=== PATIENT | male | born 1975 | race Caucasian/White ===

== ENCOUNTER → 2017-04-22 | Outpatient (CLI) | payer MEDICAID, SELFPAY | PROVIDERS: Visit Provider Family Medicine | DX: R06.09 Other forms of dyspnea (principal) | CPT/HCPCS: 36415; 71260; 82565; 84520; Q9967 ==

== ENCOUNTER 2017-06-06 16:07 | Emergency (ER) | payer MEDICAID, SELFPAY ==
[2017-06-06 16:48] VITALS: BP 157/104; PULSE 90; RESP 18; TEMP 36.5; O2SAT 97; BMI 30.6
[2017-06-06 17:27] VITALS: BP 120/85; PULSE 110; RESP 18; TEMP 36.8; O2SAT 98
--- NOTE | 2017-06-06 17:30 | PC.NURSE ---
PATIENT AND MD ARGUING AT BEDSIDE REGARDING CARE.
[2017-06-06 17:40] LABS: Basophils % 0.4 % (0.1-2.0); Eosinophils # 0.3 K/mm3 (0.0-0.4); Eosinophils % 3.6 % (0.1-12.0); Hematocrit 37.3 % (42.0-52.0); Hemoglobin 12.7 g/dL (14.1-18.0); Lymphocytes # 1.7 K/mm3 (0.7-4.5); Lymphocytes % 24.3 K/mm3 (10-50); Mean Corpuscular HGB Conc 34.1 g/dL (31.8-35.4); Mean Platelet Volume 8.4 fl (7.4-10.4); Monocytes # 0.3 K/mm3 (0.1-1.0); Monocytes % 4.3 % (1.7-9.3); Neutrophils # 4.7 K/mm3 (1.8-7.8); Neutrophils % 67.3 % (37.0-80.0); Platelet Count 167 K/mm3 (142-424); Red Blood Count 4.39 M/mm3 (4.60-6.20); Red Cell Distribution Width 12.4 % (11.5-17.5); White Blood Count 6.9 K/mm3 (4.8-10.8)
[2017-06-06 17:56] LABS: Alanine Aminotransferase 92 U/L (12-78); Albumin Level 4.3 gm/dL (3.4-5.0); Alkaline Phosphatase 120 U/L (46-116); Anion Gap 14.9 mEq/L (5-15); Bilirubin,Total 0.4 mg/dL (0.2-1.0); Blood Urea Nitrogen 37 mg/dL (7-18); Calcium 9.3 mg/dL (8.5-10.1); Carbon Dioxide 27 mmol/L (21.0-32.0); Chloride 101 mmol/L (98-107); Creatinine Clearance Estimated 107 mL/min (0-300); Creatinine,Serum 1.44 mg/dL (0.70-1.30); Estimated Glomerular Filt Rate 54 ml/min (>60); GFR (African American) 66 ML/MIN (>60); Globulin 4.5 gm/dl (1.3-3.2); Glucose 235 mg/dL (74-106); Sodium 138 mmol/L (136-145); Total Protein,Serum 8.8 gm/dL (6.4-8.2)
[2017-06-06 17:58] LABS: Aspartate Amino Transferase 44 U/L (15-37); Potassium 4.9 mmoL/L (3.5-5.1)
[2017-06-06 17:59] LABS: Hemoglobin A1C 11.2 % (0.0-7.0)
== END 2017-06-06 17:26 | disposition left against medical advice (07) ==
PROVIDERS: Emergency Medicine; Emergency Provider Emergency Medicine; Family Provider Family Medicine
DX: Z53.29 Procedure and treatment not carried out because of patient's decision for other reasons (principal)
CPT/HCPCS: 80053; 83036; 85025; 99211; 99282

== ENCOUNTER → 2017-06-30 11:57 | Outpatient (CLI) | payer MEDICAID, SELFPAY ==
--- NOTE | 2017-06-30 12:13 | CT_ITS ---
CT head/brain wo/w con HISTORY: Severe headache ITS.REASON: SEVERE HEADACHE ORDERING PHYSICIAN: Isaac Ruby MD PATIENT AGE: 42 years COMPARISON: None TECHNIQUE: Axial images obtained without and with contrast. 100 mg of Isovue-300 injected IV.. Brain and bone windows reviewed. FINDINGS: No midline shift, mass effect, intracranial hemorrhage, hydrocephalus, or extra-axial fluid collection is evident. No enhancing lesions are evident. Is moderate opacification of the ethmoid sinuses bilaterally. No calvarial abnormality or mastoid effusion. IMPRESSION: 1. Negative CT head without and with contrast. No acute intracranial findings. 2. Bilateral ethmoid sinus disease
[2017-06-30 12:29] LABS: Blood Urea Nitrogen 43 mg/dL (7-18); Creatinine,Serum 1.58 mg/dL (0.70-1.30); Estimated Glomerular Filt Rate 49 ml/min (>60); GFR (African American) 59 ML/MIN (>60)
--- NOTE | 2017-06-30 12:52 | HMH.ITSHM ---
LANTUS,NOVOLOG OSARTIN POSTASSIUM,FUROSEMIDE,BISPROLOL FURMAERATE
== END ==
PROVIDERS: Visit Provider Family Medicine
DX: R51 Headache (principal)
CPT/HCPCS: 36415; 70470; 82565; 84520; Q9967

== ENCOUNTER 2017-07-04 13:04 | Emergency (ER) | payer MEDICAID, SELFPAY ==
[2017-07-04 14:05] VITALS: BP 116/77; PULSE 75; RESP 18; TEMP 36.6; O2SAT 97; BMI 39.1
--- NOTE | 2017-07-04 14:13 | HMH.EDUTC ---
[facility] Disposition Clinical Impression: Sinus headache Disposition: Home, Self-Care Condition on Discharge: Good Instructions: DI for Chronic Pain -- Adult Additional Instructions: * Monitor Temp. Tylenol and/or Ibuprofen as needed. ER if fever is no less than 101 despite alternating Tylenol and Ibuprofen * Encourage fluids, water, Gatorade, powerade, pedialyte if /toddler/or child * Warm salt water gargles for throat irritation *Warm fluids *Sore throat lozenges *Sleep elevated *humidifier or vaporizer Lots of rest Increase fluids, water, Gatorade, powerade *Flonase 2 sprays each nostril daily but may take 2-3 days to notice improvement with it *Bromfed may cause drowsiness. Know how it effect you or your child. Before driving, caring for small children or sending your child to school *Your throat swab was sent to lab for culture. Those results area typically sent to your primary care physician. Be sure to follow up in 2-3 days if no improvement so they can review those results and treat if necessary If you dont have primary care I recommend you get one, but in the mean time you will have to return to a walk in clinic Follow up IMMEDIATELY for new or worsening of symptoms OR no noticeable improvement over the next 48-72 hours. 911 immediately for any life threatening symptoms such as chest pain or difficulty breathing Prescriptions: Dextromethorphan Polistirex [Delsym] 10 ml PO Q12H PRN #300 [email or web address] PRN Reason: Cough Fluticasone Propionate [Flonase 50mcg nasal spray 16gm] 2 spr NS DAILY #1 bottle Referrals: Colin Orellana MD [Primary Care Provider] - Forms: Work/School Release Time of Disposition: 15:04 Medical Decision Making - Medical Records Medical records reviewed: Yes: I reviewed the patient's medical records. Vital Signs: 07/04/17 14:05 Temperature 97.8 F Temperature Source Temporal Artery Scan Pulse Rate [Right Brachial] 75 Respiratory Rate 18 Blood Pressure [Right Arm] 116/77 Blood Pressure Mean [Right Arm] 90 Blood Pressure Source [Right Arm] Automatic Cuff Blood Pressure Position [Right Arm] Sitting 02 Sat by Pulse Oximetry 97 Oxygen Delivery Method Room Air - Gage Inquiry Pt receiving controlled substance: No Gage was queried for this patient: No - Reevaluation(s) Time: 15:00 Reevaluation #1: Patient still having headache, patient given headache treatment Tordol, benadryl, and reglan will recheck in 15 min to see if pain improved [facility] HPI - General Stated complaint: h/a Mode of Arrival: Family Vehicle Source of Information: Patient Limitations: No Limitations Description of Symptoms (Recalled from Triage Doc. by RN): C/O SORE THROAT AND HEADACHE X 1 WEEK HEENT Symptoms (Recalled from RN notes): Yes (SORE THROAT AND HEADACHE) Resp Symptoms (Recalled from RN notes): No Skin Symptoms (Recalled from RN notes): No MS Symptoms (Recalled from RN notes): No Functional Status (Recalled from RN notes): N/A - History of Present Illness Provider Complaint: Patient state thats that he was seen and started taking Augmentin about 3 days ago for sinus infection States that he has been taking the medication as prescribed and still having headache and pressure like feeling State that now his throat is feeling sore and he is having body aches so he was afraid he may have the flu so he wanted to come in for headache and flu like symptoms - Related Data Home Medications Medication Instructions Recorded Confirmed Amoxicillin/Potassium Clav 1 tab PO Q12H 07/04/17 07/04/17 [Augmentin 875-125 Tablet] Bisoprolol Fumarate 10 mg PO DAILY 07/04/17 07/04/17 Furosemide [Lasix 80mg tab] 80 mg PO BID 07/04/17 07/04/17 Insulin Glargine,Hum.rec.anlog 36 unit SQ DAILY 07/04/17 07/04/17 [Basaglar Kwikpen U-100] Insulin Lispro [HumaLOG 100 8 unit SQ TID 07/04/17 07/04/17 units/mL 3mL vial (SSI)] Losartan Potassium [Cozaar] 100 mg PO DAILY 07/04/17 07/04/17 Previous Rx's Medicat
[2017-07-04 15:20] VITALS: BP 120/78; PULSE 75; RESP 18; TEMP 36.4; O2SAT 98
[2017-07-04 15:30] LABS: UTC Influenza A Antigen Negative (Negative); UTC Influenza B Antigen Negative (Negative); UTC Strep Screen (Rapid) Negative (Negative)
== END 2017-07-04 15:22 | disposition home or self-care (01) ==
PROVIDERS: Emergency Provider Nurse Practitioner; Family Provider Family Medicine; PCP Family Medicine
DX: R51 Headache (principal); E10.9 Type 1 diabetes mellitus without complications; Z79.4 Long term (current) use of insulin
CPT/HCPCS: 87804; 87880; 96372; 99203

== ENCOUNTER 2017-08-05 17:22 | Observation (INO) ==
[2017-08-05 17:59] LABS: Basophils % 0.2 % (0.1-2.0); Eosinophils # 0.2 K/mm3 (0.0-0.4); Eosinophils % 1.1 % (0.1-12.0); Hematocrit 41.9 % (42.0-52.0); Lymphocytes # 1.5 K/mm3 (0.7-4.5); Lymphocytes % 10.4 K/mm3 (10-50); Mean Corpuscular HGB Conc 33.5 g/dL (31.8-35.4); Mean Corpuscular Hemoglobin 28.5 pg (27.0-31.2); Mean Corpuscular Volume 85.2 fl (80-94); Mean Platelet Volume 8.1 fl (7.4-10.4); Monocytes # 0.3 K/mm3 (0.1-1.0); Monocytes % 2.2 % (1.7-9.3); Neutrophils % 86.1 % (37.0-80.0); Platelet Count 243 K/mm3 (142-424); Red Blood Count 4.91 M/mm3 (4.60-6.20); Red Cell Distribution Width 12.5 % (11.5-17.5)
[2017-08-05 18:09] LABS: Albumin/Globulin Ratio 0.9 (1.1-1.8); Anion Gap 10.7 mEq/L (5-15); Bilirubin,Total 0.6 mg/dL (0.2-1.0); Calcium 10.1 mg/dL (8.5-10.1); Globulin 4.6 gm/dl (1.3-3.2); Potassium 4.7 mmoL/L (3.5-5.1); Total Protein,Serum 8.6 gm/dL (6.4-8.2)
[2017-08-05 18:20] LABS: VBG Base Excess 1.3 mmol/L (-2.4-2.3); VBG HCO3 27.3 mmol/L (23-30); VBG Oxygen Saturation 64.3 % (50-70); VBG PCO2 53.2 mmol/L (35-51); VBG PH 7.33 mmol/L (7.31-7.41); VBG PO2 32.5 mmol/L (28-40); VBG Total CO2 28.9 mmol/L (23-27)
--- NOTE | 2017-08-05 18:35 | Emergency Department Note ---
ED Disposition Clinical Impression: Dehydration, Acute renal insufficiency, IDDM (insulin dependent diabetes mellitus), Intractable vomiting Disposition: Still a Patient Condition on Discharge: Fair Instructions: DI for Diarrhea and Traveler's Diarrhea -- Adult, DI for Diarrhea and Traveler's Diarrhea -- Child, DI for Nausea -- Adult, DI for Nausea -- Child Referrals: Colin Orellana MD [Primary Care Provider] - - Critical Care Critical Care Time: No Attestation: On 08/05/17, the high probability of a clinically significant, sudden or life threatening deterioration of the following system(s) required my full and direct attention, intervention and personal management. The time I documented below is in addition to time spent performing reported procedures but includes the following listed in this critical care notation. Medical Decision Making - Gage Inquiry Pt receiving controlled substance: No Gage was queried for this patient: No Vital Signs: 08/05/17 17:34 Temperature 99.0 F Temperature Source Oral Pulse Rate [Right Brachial] 73 Respiratory Rate 18 Blood Pressure [Right Arm] 154/96 Blood Pressure Mean [Right Arm] 115 Blood Pressure Source [Right Arm] Automatic Cuff Blood Pressure Position [Right Arm] Sitting 02 Sat by Pulse Oximetry 98 Oxygen Delivery Method Room Air - Lab Data Lab Results 08/05/17 17:45: WBC 14.0 H, RBC 4.91, Hgb 14.0 L, Hct 41.9 L, MCV 85.2, MCH 28.5 , MCHC 33.5, RDW 12.5, Plt Count 243, MPV 8.1, Neut % (Auto) 86.1 H, Lymph % ( Auto) 10.4, Leon % (Auto) 2.2, Eos % (Auto) 1.1, Baso % (Auto) 0.2, Neut # (Auto ) 12.0 H, Lymph # (Auto) 1.5, Leon # (Auto) 0.3, Eos # (Auto) 0.2, Baso # (Auto ) 0.0 08/05/17 17:45: Sodium 143, Potassium 4.7, Chloride 105, Carbon Dioxide 32, Anion Gap 10.7, BUN 50 H, Creatinine 1.89 H, Estimated Creat Clear 77, Estimated GFR 40 L, Est GFR ( Amer) 48 L, Glucose 203 H, Calcium 10.1, Total Bilirubin 0.6, AST 43 H, ALT 89 H, Alkaline Phosphatase 119 H, Total Protein 8.6 H, Albumin 4.0, Globulin 4.6 H, Albumin/Globulin Ratio 0.9 L 08/05/17 17:45: Acetone Level None detected 08/05/17 18:13: VBG pH 7.33, VBG pCO2 53.2 H, VBG pO2 32.5, VBG HCO3 27.3, VBG Total CO2 28.9 H, VBG O2 Saturation 64.3, VBG Base Excess 1.3 Result diagrams: 08/05/17 17:45 08/05/17 17:45 Orders (Tests/Meds): ED MEDICATIONS Discontinued Medications Generic Name Dose Route Start Last Admin Trade Name Freq PRN Reason Stop Dose Admin Sodium Chloride 1,000 mls @ 999 mls/hr 08/05/17 17:45 08/05/17 17:43 Sod Chlor 0.9% 1000ml Bag IV 08/05/17 18:45 999 mls/hr .Q1H1M SHRADDHA Administration Ondansetron HCl 4 mg 08/05/17 17:41 08/05/17 17:42 Zofran 4mg/2ml Vial IV 08/05/17 17:42 4 mg ONCE ONE Administration ORDERS Category Date Time Status Acute abdomen XR series [XR acute abdomen series] Stat Exams 08/05/17 18:31 Taken Complete Blood Count Auto Diff Stat Lab 08/05/17 17:45 Results Urinalysis and Microscopic Stat Lab 08/05/17 17:39 Ordered Venous Blood Gas Stat RT 08/05/17 17:40 Ordered - Radiology Data #1 Image(s): Chest, Abdomen Image Reviewed: Yes I reviewed the patient's radiology image Preliminary Findings: Normal/NAD No acute findings Medical Decision Narrative: Obtain labs in series discussed with Dr. Orellana who agreed to admit for IV fluid rehydration. Start the patient on Reglan. Nausea/Vomiting/Diarrhea HPI - General Chief complaint: Nausea/Vomiting/Diarrhea Stated complaint: v/d Time Seen by Provider: 08/05/17 18:00 Mode of Arrival: Ambulatory Limitations: No Limitations Description of Symptoms (Recalled from ER Triage Doc. by RN): iddm who presents having had n/v/d for 48 hours; states he cannot keep anything down. further states his bs has been elevated at home, and has been giving his routine insulin ;. pt states he needs a head ct because he has been dizzy for months and needs - History of Present Illness HPI Narrative: 42 years old white male diabetic insulin-dependent with history of DKA . 2 days ago he started having vomiting 10-15 times a day and yesterday he developed diarrhea 5 times a day. He denies fever chills or abdominal pain. He he had urine output 3 times a day. MD complaint: nausea, vomiting, diarrhea Onset (ago): day(s) (2 days.) Description of Vomiting: food contents Description of Diarrhea: water Associated Abdominal Pain: No - Related Data Home Medications Medication Instructions Recorded Confirmed Amoxicillin/Potassium Clav 1 tab PO Q12H 07/04/17 07/04/17 [Augmentin 875-125 Tablet] Bisoprolol Fumarate 10 mg PO DAILY 07/04/17 07/04/17 Furosemide [Lasix 80mg tab] 80 mg PO BID 07/04/17 07/04/17 Insulin Glargine,Hum.rec.anlog 36 unit SQ DAILY 07/04/17 07/04/17 [Basaglar Kwikpen U-100] Insulin Lispro [HumaLOG 100 8 unit SQ TID 07/04/17 07/04/17 units/mL 3mL vial (SSI)] Losartan Potassium [Cozaar] 100 mg PO DAILY 07/04/17 07/04/17 Previous Rx's Medication Instructions Recorded Dextromethorphan Polistirex 10 ml PO Q12H PRN #300 [email or web address] 07/04/17 [Delsym] Fluticasone Propionate [Flonase 2 spr NS DAILY #1 bottle 07/04/17 50mcg nasal spray 16gm] Allergies Allergy/AdvReac Type Severity Reaction Status Date / Time No Known Allergies Allergy Verified 07/04/17 14:11 [facility] History I have reviewed the patient's past medical history: Yes Medical History: Reports:: Diabetes Mellitus Type 1 - Social History Educational Level: Completed High School Alcohol Intake: never - Psychiatric History Expresses thoughts of harming self/others: None Suicide Plan Description: No Plan ROS Obtained: Yes All systems reviewed & no additional complaints Physical Exam - General General appearance: alert, in no apparent distress - Head Head exam: atraumatic, normocephalic, normal inspection - Eye Eye exam: Present: normal appearance, PERRL, EOMI. Absent: nystagmus - ENT ENT exam: Present: mucous membranes dry - Neck Neck exam: Present: normal inspection, full ROM, trachea midline. Absent: meningismus, lymphadenopathy - Chest Chest inspection: Present: normal inspection, symmetric chest wall rise. Absent : tenderness - Respiratory Respiratory exam: Present: normal lung sounds bilaterally. Absent: respiratory distress - Cardiovascular Cardiovascular exam: Present: regular rate, normal rhythm. Absent: JVD - Abdominal Exam Abdominal exam: Present: soft, normal bowel sounds. Absent: distention, tenderness, guarding, rebound, rigidity - Extremities Exam Extremities exam: Present: normal inspection, full ROM, normal capillary refill. Absent: calf tenderness - Back Exam Back exam: Present: normal inspection. Absent: tenderness - Neurological Exam Neurological exam: Present: alert, oriented X3, CN II-XII intact, motor sensory deficit, reflexes normal - Psychiatric Psychiatric exam: Present: normal affect, normal mood - Skin Skin exam: Present: warm, dry, intact, normal color
[2017-08-05 19:07] LABS: Amylase 49 U/L (25-125); Lipase 113 u/L (73-393)
[2017-08-05 19:15] LABS: Eosinophils % 1 % (0-3); Lymphocytes % 13 % (10-50); Monocytes % 4 % (2-9); Neutrophils % 82 % (42-76); RBC Morphology Normal; Total Cells Counted 100
--- NOTE | 2017-08-06 07:28 | History & Physical Report ---
*Admission Date: 08/05/17 *Chief complaint: vomiting *History of present illness: 42-year-old male with uncontrolled diabetes and into the emergency department with 3 days of vomiting as well as diarrhea. Patient reports sudden onset of vomiting 3 days prior to presentation that was unrelenting. He was unable to hold down solids or liquids. He developed diarrhea during this time which was more frequent in the initial of illness but has decreased in severity as he has been unable to maintain any p.o. intake. He denies fevers chills. Patient has had similar episodes in the past. Workup in the emergency department was rather unremarkable but clinically he appeared dehydrated so was admitted for IV fluids. [facility] History I have reviewed the patient's past medical history: Yes Medical History: Reports:: Congestive Heart Failure, Diabetes Mellitus Type 1 ( HX OF NEUROPATHY) - *Social History Educational Level: Attended High School Smoking Status: Never smoker Alcohol Intake: never Occupational Status: disabled Housing: house Household Members: spouse - Psychiatric History Expresses thoughts of harming self/others: None Suicide Plan Description: No Plan *Family Hx:: Cancer, Coronary Artery Disease, Diabetes, Hyperlipidemia, Hypertension, Kidney Disease, Stroke Review of Systems - Review of Systems Review of systems:: pertinent systems reviewed and negative unless documented below Meds Home Medications Medication Instructions Recorded Confirmed Type Bisoprolol Fumarate 10 mg PO DAILY 07/04/17 08/05/17 History Furosemide [Lasix 80mg tab] 80 mg PO BID 07/04/17 08/05/17 History Insulin Glargine,Hum.rec.anlog 38 unit SQ DAILY 07/04/17 08/05/17 History [Basaglar [place] U-100] Insulin Lispro [HumaLOG 100 10 unit SQ TID 07/04/17 08/05/17 History units/mL 3mL vial (SSI)] Losartan Potassium [Cozaar] 100 mg PO DAILY 07/04/17 08/05/17 History Fluticasone Propionate [Flonase 2 spr NS DAILY PRN 08/05/17 08/05/17 History 50mcg nasal spray 16gm] Allergies Allergy/AdvReac Type Severity Reaction Status Date / Time No Known Allergies Allergy Verified 07/04/17 14:11 Exam Vital signs and Labs for Last 24 Hours: Temp Pulse Resp BP Pulse Ox 98.0 F 80 16 146/80 94 L 08/06/17 04:00 08/06/17 04:00 08/06/17 04:00 08/06/17 04:00 08/06/17 04:00 Laboratory Results - last 24 hr 08/06/17 05:51: POC Glucose 121 H I & O for Last 24 hours: Intake & Output 08/03/17 08/04/17 08/05/17 08/06/17 11:59 11:59 11:59 11:59 Intake Total 1470 / 1470 Balance 1470 / 1470 Narrative: Patient is awake and alert this morning and does not appear dehydrated nor does he appear in any distress. Pedal reactive to light. Oropharynx is moist. Neck is without lymphadenopathy. Lungs are clear to auscultation. Heart has a regular rate and rhythm. Abdomen is soft and nontender. Patient has active range of motion in all extremities and no focal neurologic deficits Assessment and Plan (1) Dehydration Current visit: Yes Status: Acute Category: Medical Code(s): E86.0 - Dehydration (2) Gastroenteritis Current visit: Yes Status: Acute Category: Medical Code(s): K52.9 - Noninfective gastroenteritis and colitis, unspecified (3) Diabetic gastroparesis Current visit: Yes Status: Acute Category: Medical Code(s): E11.43 - Type 2 diabetes mellitus with diabetic autonomic (poly)neuropathy; K31.84 - Gastroparesis - Assessment and plan all Dx Assessment and Plan for all problems:: Patient's vomiting is seemingly resolved it is now been 10 hour since his last episode of emesis. Diet has been advanced. I will start Reglan prior to meals and at night and we will start this intravenously. Encourage ambulation. Dehydration is resolved and I will decrease his IV fluids as patient has had a significant problems with pedal edema in the last 2 years. If patient can keep liquids down today he will be discharged home later this evening
[2017-08-06 07:42] LABS: Albumin Level 3.1 gm/dL (3.4-5.0); Albumin/Globulin Ratio 0.8 (1.1-1.8); Anion Gap 10.5 mEq/L (5-15); Bilirubin,Total 0.4 mg/dL (0.2-1.0); Globulin 3.8 gm/dl (1.3-3.2); Potassium 4.5 mmoL/L (3.5-5.1); Total Protein,Serum 6.9 gm/dL (6.4-8.2)
--- NOTE | 2017-08-06 08:02 | Pharmacy Consult Notes ---
[facility] VTE Monitoring - Patient Demographics Admission date: 08/05/17 Report Date: 08/06/17 Time: 08:00 Allergies/Adverse Reactions: Patient Allergies No Known Allergies Allergy (Verified 07/04/17 14:11) Height: 1.78 m Weight: 98.685 kg Patient Problems: Current Active Problems Dehydration (Acute) Acute renal insufficiency (Acute) IDDM (insulin dependent diabetes mellitus) (Acute) Intractable vomiting (Acute) Gastroenteritis (Acute) Diabetic gastroparesis (Acute) - VTE Risk Labs: VTE Related Lab Results Hgb 14.0 g/dL (14.1-18.0) L 08/05/17 17:45 Hct 41.9 % (42.0-52.0) L 08/05/17 17:45 Plt Count 243 K/mm3 (142-424) 08/05/17 17:45 BUN 48 mg/dL (7-18) H 08/06/17 06:27 Creatinine 1.61 mg/dL (0.70-1.30) H 08/06/17 06:27 Estimated Creat Clear 85 mL/min (0-300) 08/06/17 06:27 Was VTE Risk Assessment Performed: Yes VTE Score: 3 VTE Risk Level: Low Risk Clinical Trial Participant: No - Prophylaxis VTE Prophylaxis Ordered?: Yes Types of VTE Prophylaxis: TEDS Knee High
[2017-08-06 08:13] LABS: Hematocrit 34.9 % (42.0-52.0); Mean Corpuscular HGB Conc 34.9 g/dL (31.8-35.4); Mean Corpuscular Volume 83.2 fl (80-94); Red Cell Distribution Width 12.6 % (11.5-17.5); White Blood Count 7.5 K/mm3 (4.8-10.8)
[2017-08-06 08:14] LABS: Basophils % 0.3 % (0.1-2.0); Eosinophils # 0.2 K/mm3 (0.0-0.4); Eosinophils % 2.2 % (0.1-12.0); Lymphocytes # 1.9 K/mm3 (0.7-4.5); Lymphocytes % 24.7 K/mm3 (10-50); Mean Platelet Volume 8.1 fl (7.4-10.4); Monocytes # 0.3 K/mm3 (0.1-1.0); Monocytes % 3.9 % (1.7-9.3); Neutrophils # 5.2 K/mm3 (1.8-7.8); Platelet Count 169 K/mm3 (142-424)
[2017-08-06 08:36] LABS: Hemoglobin 12.3 g/dL (14.1-18.0)
--- NOTE | 2017-08-06 16:35 | Discharge Summary ---
General - General Admission date: 08/05/17 Discharge date: 08/06/17 HPI HPI: 42-year-old male with uncontrolled diabetes and into the emergency department with 3 days of vomiting as well as diarrhea. Patient reports sudden onset of vomiting 3 days prior to presentation that was unrelenting. He was unable to hold down solids or liquids. He developed diarrhea during this time which was more frequent in the initial of illness but has decreased in severity as he has been unable to maintain any p.o. intake. He denies fevers chills. Patient has had similar episodes in the past. Workup in the emergency department was rather unremarkable but clinically he appeared dehydrated so was admitted for IV fluids. Hospital Course Hospital Course: Patient was admitted and given Zofran and Phenergan for nausea. He had one further episode of emesis at 9 PM. Patient remained emesis free afterwards and did not have any further diarrhea. On the following morning (August 06) patient' s fluids were decreased as he appeared adequately hydrated. Was advanced and he was given Reglan prior to meals which he tolerated well. He did not have any further vomiting. He was discharged home. Patient will start oral Reglan and follow-up in my office in 2 weeks Objective Vital signs: Temp Pulse Resp BP Pulse Ox 97.8 F 67 16 184/111 99 08/06/17 16:00 08/06/17 16:00 08/06/17 16:00 08/06/17 16:00 08/06/17 16:00 Results Labs on day of discharge: Labs from last 24 hours 08/06/17 08/06/17 08/06/17 16:12 11:08 08:22 WBC RBC Hgb Hct MCV MCH MCHC RDW Plt Count MPV Neut % (Auto) Lymph % (Auto) Hinds % (Auto) Eos % (Auto) Baso % (Auto) Neut # (Auto) Lymph # (Auto) Hinds # (Auto) Eos # (Auto) Baso # (Auto) Sodium Potassium Chloride Carbon Dioxide Anion Gap BUN Creatinine Estimated Creat Clear Estimated GFR Est GFR ( Amer) Glucose POC Glucose 376 H* 330 H* Calcium Magnesium Total Bilirubin AST ALT Alkaline Phosphatase Total Protein Albumin Globulin Albumin/Globulin Ratio Stl Aeromonas (PCR) Not detected Stl C. cayetanensis PCR Not detected Stool Rotavirus (PCR) Not detected Stl Adenov F 40/41 PCR Not detected Stool Astrovirus (PCR) Not detected Stool Campylobacter PCR Not detected Stl C.difficile Tox PCR Not detected Stool Cryptosporidium PCR Not detected Stl E.coli Shiga Tox PCR Not detected Stool E coli O157 PCR Not detected Stl Enterotoxigenic E PCR Not detected Stool EPEC (PCR) Not detected Stool EAEC (PCR) Not detected Stl E. histolytica PCR Not detected Stool Giardia Lamblia PCR Not detected Stool Salmonella PCR Not detected Stool Sapovirus (PCR) Not detected Stl P. shigelloides PCR Not detected Stl Shigella/EIEC PCR Not detected St Y.enterocolitica PCR Not detected Stool Vibrio (PCR) Not detected Stl Vibrio cholerae PCR Not detected Stl Norovirus GI/GII PCR Not detected 08/06/17 08/06/17 08/06/17 06:27 06:27 05:51 WBC 7.5 D RBC 4.20 L Hgb 12.3 L D Hct 34.9 L MCV 83.2 MCH 29.0 MCHC 34.9 RDW 12.6 Plt Count 169 D MPV 8.1 Neut % (Auto) 69.0 Lymph % (Auto) 24.7 Hinds % (Auto) 3.9 Eos % (Auto) 2.2 Baso % (Auto) 0.3 Neut # (Auto) 5.2 Lymph # (Auto) 1.9 Hinds # (Auto) 0.3 Eos # (Auto) 0.2 Baso # (Auto) 0.0 Sodium 145 Potassium 4.5 Chloride 111 H Carbon Dioxide 28 Anion Gap 10.5 BUN 48 H Creatinine 1.61 H Estimated Creat Clear 85 Estimated GFR 48 L Est GFR ( Amer) 58 L D Glucose 130 H D POC Glucose 121 H Calcium 9.0 D Magnesium 2.2 Total Bilirubin 0.4 AST 28 D ALT 67 Alkaline Phosphatase 90 Total Protein 6.9 Albumin 3.1 L D Globulin 3.8 H Albumin/Globulin Ratio 0.8 L Stl Aeromonas (PCR) Stl C. cayetanensis PCR Stool Rotavirus (PCR) Stl Adenov F 40/41 PCR Stool Astrovirus (PCR) Stool Campylobacter PCR Stl C.difficile Tox PCR Stool Cryptosporidium PCR Stl E.coli Shiga Tox PCR Stool E coli O157 PCR Stl Enterotoxigenic E PCR Stool EPEC (PCR) Stool EAEC (PCR) Stl E. histolytica PCR Stool Giardia Lamblia PCR Stool Salmonella PCR Stool Sapovirus (PCR) Stl P. shigelloides PCR Stl Shigella/EIEC PCR St Y.enterocolitica PCR Stool Vibrio (PCR) Stl Vibrio cholerae PCR Stl Norovirus GI/GII PCR DS: Diagnosis - Discharge Diagnosis (1) Dehydration Status: Acute (2) Gastroenteritis Status: Acute (3) Diabetic gastroparesis Status: Acute Discharge Plan - Patient Discharge Instructions ACTIVITY: Continue current activity DIET: continue same diet Patient Instructions: Low-Sodium Diet - Follow up Plan Follow up with: Colin Orellana MD [Primary Care Provider] - 2 weeks Disposition: Home, Self-Shelter Medications: Home Medications Medication Instructions Recorded Confirmed Type Bisoprolol Fumarate 10 mg PO DAILY 07/04/17 08/05/17 History Furosemide [Lasix 80mg tab] 80 mg PO BID 07/04/17 08/05/17 History Insulin Glargine,Hum.rec.anlog 38 unit SQ DAILY 07/04/17 08/05/17 History [Basaglar Kwikpen U-100] Insulin Lispro [HumaLOG 100 10 unit SQ TID 07/04/17 08/05/17 History units/mL 3mL vial (SSI)] Losartan Potassium [Cozaar] 100 mg PO DAILY 07/04/17 08/05/17 History Fluticasone Propionate [Flonase 2 spr NS DAILY PRN 08/05/17 08/05/17 History 50mcg nasal spray 16gm] Atorvastatin Calcium [Atorvastatin 10 mg PO HS 08/06/17 08/06/17 History 10mg Tab] Prescriptions/Medication Reconciliation: New Metoclopramide HCl [Metoclopramide 10mg Tablet] 10 mg PO ACHS #120 tab Continue Insulin Lispro [HumaLOG 100 units/mL 3mL vial (SSI)] 10 unit SQ TID Bisoprolol Fumarate 10 mg PO DAILY Losartan Potassium [Cozaar] 100 mg PO DAILY Furosemide [Lasix 80mg tab] 80 mg PO BID Insulin Glargine,Hum.rec.anlog [Basaglar Kwikpen U-100] 38 unit SQ DAILY Dextromethorphan Polistirex [Delsym] 10 ml PO Q12H PRN #300 robby.er.12h PRN Reason: Cough Fluticasone Propionate [Flonase 50mcg nasal spray 16gm] 2 spr NS DAILY PRN PRN Reason: Congestion Atorvastatin Calcium [Atorvastatin 10mg Tab] 10 mg PO HS
== END 2017-08-06 16:45 | disposition home or self-care (01) ==
LOC: ER 17:22 → 2ND 17:22
PROVIDERS: ADMIT Family Medicine; ATTEND Family Medicine

== ENCOUNTER → 2017-09-29 13:04 | Outpatient (CLI) | payer MEDICAID, SELFPAY ==
--- NOTE | 2017-09-29 13:09 | FL_ITS ---
FL barium swallow modified: 09/29/2017 1:09 PM CLINICAL HISTORY: Dysphasia, trouble swallowing ORDERING PHYSICIAN: Emily Parkinson PATIENT AGE: 42 years Comparison: None TECHNIQUE: Patient administered varying consistencies of barium contrast, while viewed in lateral position under real-time fluoroscopy with cine recording. FLUOROSCOPY TIME: Fluoroscopy time: 4 minutes 42 seconds The study was performed in conjunction with speech pathologist. Please see that report & recommendations. FINDINGS: Patient was given varying consistencies of barium. Please see speech pathologist report for specifics on the consistencies. There was mild vallecular residue with pudding, mechanical soft, irregular, and pill which cleared with thin wash. The lower esophagus was also visualized and show some mild spasm IMPRESSION: Mild vallecular residue. No aspiration or penetration Please see speech pathologist report and recommendations.
== END ==
PROVIDERS: Family Provider Family Medicine; PCP Family Medicine; Visit Provider Nurse Practitioner Family
DX: R13.10 Dysphagia, unspecified (principal)
CPT/HCPCS: 70371; 92611

== ENCOUNTER → 2017-10-12 15:02 | Outpatient (CLI) | payer MEDICAID, SELFPAY ==
--- NOTE | 2017-10-12 15:05 | US_ITS ---
MM Dig mamm BI DX w/CAD, US breast RT complete INDICATION: Palpable abnormality right breast ORDERING PHYSICIAN: Deloris Bishop PATIENT AGE: 42 years COMPARISON: None TECHNIQUE: Standard images performed of both breasts along with spot compression views of the right breast and right breast ultrasound FINDINGS: Asymmetric increased density is present in the retroareolar region on both sides flame-shaped consistent with gynecomastia. This is somewhat more prominent on the right. Spot compression views show no discrete mass or abnormal calcifications. Right breast ultrasound: Irregular decreased echogenicity is present in the retroareolar region measuring approximately 2 x 0.8 cm. There is enhanced through transmission of sound. This has a somewhat similar but less apparent appearance on the left consistent with gynecomastia. IMPRESSION: Bilateral gynecomastia right more prominent than left BI-RADS Category: 2 Benign Finding(s) Follow-up suggested as clinically warranted. (A letter has been sent to the patient regarding results of the study.)
== END ==
PROVIDERS: Family Provider Family Medicine; PCP Family Medicine; Visit Provider Nurse Practitioner
DX: N63.0 Unspecified lump in unspecified breast (principal)
CPT/HCPCS: 76641; 77066

== ENCOUNTER → 2018-02-22 11:03 | Outpatient (POV) | payer MEDICAID, SELFPAY | PROVIDERS: Visit Provider Internal Medicine | DX: Z00.00 Encounter for general adult medical examination without abnormal findings (principal) ==

== ENCOUNTER 2018-07-02 15:02 | Inpatient (IN) ==
[2018-07-02 15:07] LABS: Basophils % 0.2 % (0.1-2.0); Eosinophils % 0.2 % (0.1-12.0); Hematocrit 34.2 % (42.0-52.0); Hemoglobin 10.5 g/dL (14.1-18.0); Lymphocytes # 0.6 K/mm3 (0.7-4.5); Lymphocytes % 6.3 % (10-50); Mean Corpuscular HGB Conc 30.6 g/dL (31.8-35.4); Mean Corpuscular Hemoglobin 29.5 pg (27.0-31.2); Mean Corpuscular Volume 96.3 fl (80-94); Mean Platelet Volume 8.1 fl (7.4-10.4); Monocytes # 0.3 K/mm3 (0.1-1.0); Monocytes % 2.5 % (1.7-9.3); Neutrophils # 9.1 K/mm3 (1.8-7.8); Neutrophils % 90.8 % (37.0-80.0); Platelet Count 201 K/mm3 (142-424); Red Blood Count 3.55 M/mm3 (4.60-6.20); Red Cell Distribution Width 13.3 % (11.5-17.5)
[2018-07-02 15:10] LABS: Microscopic, Urine URINE MICROSCOPIC (MICROSCOPIC)
[2018-07-02 15:20] LABS: Sodium 137 mmol/L (136-145)
[2018-07-02 15:21] LABS: Anion Gap 9.3 mEq/L (5-15); Blood Urea Nitrogen 49 mg/dL (7-18); Calcium 7.9 mg/dL (8.5-10.1); Carbon Dioxide 22 mmol/L (21.0-32.0); Chloride 106 mmol/L (98-107); Potassium 7.5 mmoL/L (3.5-5.1)
[2018-07-02 15:22] LABS: Alanine Aminotransferase 175 U/L (12-78); Aspartate Amino Transferase 207 U/L (15-37)
[2018-07-02 15:23] LABS: ABG Base Excess -10.2 mmol/L (-2.4-2.3); ABG HCO3 17.6 mmhg (22.0-26.0); ABG Oxygen Saturation 99 % (90-100); ABG PCO2 44.3 mmhg (35.0-45.0); ABG PH 7.22 mmol/L (7.35-7.45); ABG PO2 231.4 mmhg (80-100); ABG TCO2 18.9 mmhg (23-27)
[2018-07-02 15:25] LABS: Appearance,Urine SL CLOUDY (Clear); Bilirubin,Urine Negative (Negative); Blood, Urine TRACE-I (Negative); Color,Urine YELLOW (Yellow); Glucose,Urine (UA) 3+ (Negative); Ketones,Urine TRACE (Negative); Leukocyte Esterase,Urine Negative (Negative); PH,Urine 5.5 (5.0-8.5); Protein,Urine 2+ (Negative); Specific Gravity, Urine >= 1.030 (1.005-1.030); Urobilinogen,Urine 0.2 EU/dl (0.2)
[2018-07-02 15:25] LABS: Allen's Test Acceptable
[2018-07-02 15:25] LABS: Albumin/Globulin Ratio 0.8 (1.1-1.8); Alkaline Phosphatase 128 U/L (46-116); Bilirubin,Total 0.8 mg/dL (0.2-1.0); Creatine Kinase 697 U/L (39-308); Globulin 3.9 gm/dl (1.3-3.2); Total Protein,Serum 6.9 gm/dL (6.4-8.2)
[2018-07-02 15:26] LABS: Glucose 548 mg/dL (74-106)
--- NOTE | 2018-07-02 15:26 | Emergency Department Note ---
ED Disposition Clinical Impression: DKA (diabetic ketoacidoses), Hyperkalemia, A-fib Disposition: Still a Patient Condition on Discharge: Fair Referrals: Colin Orellana MD [Primary Care Provider] - - Critical Care Critical Care Time: Yes Attestation: On 07/02/18, the high probability of a clinically significant, sudden or life threatening deterioration of the following system(s) required my full and direct attention, intervention and personal management. The time I documented below is in addition to time spent performing reported procedures but includes the following listed in this critical care notation. Vital system(s) involved:: Circulatory Failure, Metabolic Failure My critical care processes included: Assessment & monitoring of V/S, Initial and Re-exams, Data Review/Interpretation, Coordinating Care, Medication Orders and management, Documentation Medical Decision Making - Medical Records Medical records reviewed: Yes: I reviewed the patient's medical records. - Gage Inquiry Pt receiving controlled substance: No Gage was queried for this patient: No Vital Signs: 07/02/18 15:08 Temperature 97.6 F Temperature Source Oral Pulse Rate [Right Brachial] 121 H Respiratory Rate 16 Blood Pressure [Right Arm] 156/97 H Blood Pressure Mean [Right Arm] 116 Blood Pressure Source [Right Arm] Automatic Cuff Blood Pressure Position [Right Arm] Supine 02 Sat by Pulse Oximetry 99 Oxygen Delivery Method Room Air - Lab Data Lab Results 07/02/18 15:00: WBC 10.0, RBC 3.55 L, Hgb 10.5 L, Hct 34.2 L, MCV 96.3 H, MCH 29.5, MCHC 30.6 L, RDW 13.3, Plt Count 201, MPV 8.1, Neut % (Auto) 90.8 H, Lymph % (Auto) 6.3 L, [place] % (Auto) 2.5, Eos % (Auto) 0.2, Baso % (Auto) 0.2, Neut # (Auto) 9.1 H, Lymph # (Auto) 0.6 L, [place] # (Auto) 0.3, Eos # (Auto) 0.0, Baso # (Auto) 0.0, Total Counted 100, Neutrophils % (Manual) 86 H, Band Neutrophils % 1.0, Lymphocytes % (Manual) 8 L, Atypical Lymphs % 1.0, Monocytes % (Manual) 4, Nucleated RBCs 1, Platelet Estimate Normal, RBC Morphology Normal 07/02/18 15:00: Sodium 137, Potassium 7.5 H*, Chloride 106, Carbon Dioxide 22, Anion Gap 9.3, BUN 49 H, Creatinine 2.81 H, Estimated Creat Clear 50, Estimated GFR 25 L, Est GFR ( Amer) 30 L, Glucose 548 H*, Calcium 7.9 L, Total Bilirubin 0.8, AST 207 H, ALT 175 H, Alkaline Phosphatase 128 H, Total Creatine Kinase 697 H*, CK-MB (CK-2) 5.9 H, CK-MB (CK-2) Rel Index 0.8, Troponin I < 0.02, Total Protein 6.9, Albumin 3.0 L, Globulin 3.9 H, Albumin/Globulin Ratio 0.8 L 07/02/18 15:00: Acetone Level None detected 07/02/18 15:04: Urine Color Yellow, Urine Appearance Sl cloudy, Urine pH 5.5, Ur Specific [place] >= 1.030, Urine Protein 2+, Urine Glucose (UA) 3+, Urine Ketones Trace, Urine Blood Trace-i, Urine Nitrate Negative, Urine Bilirubin Negative, Urine Urobilinogen 0.2, Ur Leukocyte Esterase Negative, Urine WBC 3-5, Ur Squamous Epith Cells Occasional, Urine Bacteria 3+, Hyaline Casts 5-10 07/02/18 15:04: Urine Opiates Screen Negative, Urine Methadone Screen Negative, Ur Barbituates Screen Negative, Ur Phencyclidine Scrn Negative, Ur Amphetamines Screen Negative, U Benzodiazepines Scrn Negative, Urine Cocaine Screen Negative, U Marijuana (THC) Screen Negative 07/02/18 15:18: POC Glucose 470 H* 07/02/18 : Specimen Source Left radial, O2 % 100% nrb, ABG pH 7.22 L*, ABG pCO2 44.3, ABG pO2 231.4 H, ABG HCO3 17.6 L, ABG Total CO2 18.9 L, ABG O2 Saturation 99, ABG Base Excess -10.2 L, Amrit Test Acceptable Result diagrams: 07/02/18 15:00 07/02/18 15:00 Orders (Tests/Meds): ED MEDICATIONS Generic Name Dose Route Start Last Admin Trade Name Freq PRN Reason Stop Dose Admin Sodium Chloride 1,000 mls @ 999 mls/hr 07/02/18 15:15 07/02/18 15:26 Sod Chlor 0.9% 1000ml Bag IV 07/02/18 17:15 999 mls/hr .Q1H1M SHRADDHA Administration Insulin Human Regular 100 unit 101 mls @ 5.05 mls/hr 07/02/18 15:45 / Sodium Chloride IV 08/01/18 15:44 .Q20H SHRADDHA Protocol 5 UNIT/HR Sodium Chloride 10 ml 07/02/18 15:04 Saline Flush 10ml Syringe IV 08/01/18 15:03 NEEDED PRN Maintain IV Site Discontinued Medications Generic Name Dose Route Start Last Admin Trade Name Freq PRN Reason Stop Dose Admin Calcium Gluconate 1,000 mg/ 35 mls @ 100 mls/hr 07/02/18 15:30 07/02/18 15:31 Sodium Chloride IV 07/02/18 15:50 100 mls/hr ONCE ONE Administration Insulin Human Lispro 5 unit 07/02/18 15:24 07/02/18 15:25 Humalog 100 Units/Ml 3ml Vial (Ssi) IV 07/02/18 15:25 5 unit ONCE ONE Administration Naloxone HCl 1 mg 07/02/18 15:29 07/02/18 15:29 Narcan 2mg/2ml Syringe IV 07/02/18 15:30 1 mg ONCE ONE Administration Sodium Bicarbonate 50 meq 07/02/18 15:24 07/02/18 15:25 Sodium Bicarbonate 8.4% 50ml Syringe IV 07/02/18 15:25 50 meq ONCE ONE Administration Sodium Polystyrene Sulfonate 15 gm 07/02/18 15:24 07/02/18 15:25 Kayexalate 15gm/60ml Bottle PO 07/02/18 15:25 15 gm ONCE ONE Administration ORDERS Category Date Time Status XR chest portable Stat Exams 07/02/18 15:00 Ordered Urine Culture Stat Micro 07/02/18 15:04 Received - ECG Data Tracing #1 Atrial fibrillation rate 43 slow ventricular response hyper acute T waves.. ECG initial impression date: 07/02/18 ECG initial impression time: 15:10 Tracing #2 Second EKG normal sinus rhythm 73/min with tall T waves. ECG initial impression date: 07/02/18 ECG initial impression time: 15:55 Medical Decision Narrative: [address] Subramanian the rn informatics who agreed that the patient has a hyperkalemia findings on EKG.. 1545 the patient was given bicarb, calcium gluconate, insulin IV and Kayexalate p.o. and became more arousable. [address] Orellana his primary care physician agreed to admit him for IV fluids, insulin drip and repeat potassium check in 2 hours. Altered Mental Status HPI - General Chief Complaint: Arrhythmia/Palpitations Stated Complaint: UNRESPONSIVE Time Seen by Provider: 07/02/18 15:10 Mode of Arrival: Ambulatory Limitations: No Limitations Description of Symptoms (Recalled from ER Triage Doc. by RN): pt reportedly went unresponsive on scene and bystander cpr was initiated; upon ems arrival, it was noted that patient had a pulse, bp and was arouseable. pt awake, alert and drowsy. pupils pinpoint upon arrival, pt received narcan per md order. pt woke up without delay post narcan - History of Present Illness HPI narrative: 43 years old white male with a long-standing history of IDDM, he developed nausea vomiting and diarrhea last night. 1 hour prior to EMS arrival the patient's Accu-Chek was high. Later on he had undetectable pulse a bystander started CPR at home. Upon EMS arrival the patient was more arousable he did have detectable pulse started IV fluids and brought to the ED. Upon arrival he had a sinus rhythm of 70/min later on will obtain 12-lead EKG had a atrial fibri llations with a slow response 43 with hyper acute T waves suggestive of hyperkalemia. Obtain stat labs the potassium was 7.5. The patient was lethargic he was given 1 mg of Narcan, he was given bicarb, he was given calcium gluconate, and eventually started the patient on insulin 5-minute 5 units IV. Patient became more arousable and tolerated taking his Kayexalate. I spoke with Dr. Subramanian who confirmed the hyperkalemia findings on the EKG. MD complaint: altered mental status Onset (ago): hour(s) Time: 14:30 Timing confirmed by: family member Severity: severe Consistency of symptoms: waxing and waning Associated symptoms: nausea/vomiting, diarrhea - Related Data Home Medications Medication Instructions Recorded Confirmed Insulin Glargine,Hum.rec.anlog 42 unit SQ DAILY 07/04/17 06/21/18 [Basaglar Kwikpen U-100] Insulin Lispro [HumaLOG 100 18 unit SQ TID 07/04/17 06/21/18 units/mL 3mL vial (SSI)] Allergies Allergy/AdvReac Type Severity Reaction Status Date / Time No Known Allergies Allergy Verified 06/21/18 20:38 [facility] History - Hepatitis A Screen Drug use history?: No High risk sexual behaviors?: No History of sexually transmitted infection?: No Currently employed?: No Childcare worker?: No Do you have indoor plumbing?: Yes Do you have electricity?: Yes Attestation statement:: This patient has been screened for Hepatitis A risk factors. I have reviewed the patient's past medical history: Yes (Patient had difficulty controlling his blood pressure he started on [place]) Medical History: Reports:: Congestive Heart Failure, Diabetes Mellitus Type 1 (HX OF NEUROPATHY) Denies:: Cancer, Diabetes Mellitus Type 2, MRSA Amputation: No - Social History Educational Level: Completed High School Smoking Status: Never smoker Alcohol Intake: never Occupational Status: disabled Housing: house Household Members: spouse - Psychiatric History Expresses thoughts of harming self/others: None Suicide Plan Description: No Plan Family Hx:: Cancer, Coronary Artery Disease, Diabetes, Hyperlipidemia, Hypertension, Kidney Disease, Stroke ROS Obtained: Yes All systems reviewed & no additional complaints Physical Exam - General General appearance: alert, in no apparent distress - Head Head exam: atraumatic, normocephalic, normal inspection - Eye Eye exam: Present: normal appearance, PERRL, EOMI - ENT ENT exam: Present: normal exam, normal oropharynx, mucous membranes moist, TM's normal bilaterally, normal external ear exam - Neck Neck exam: Present: normal inspection, full ROM, trachea midline. Absent: tenderness, meningismus, lymphadenopathy - Chest Chest inspection: Present: normal inspection, symmetric chest wall rise. Absent: tenderness - Respiratory Respiratory exam: Present: normal lung sounds bilaterally. Absent: respiratory distress, wheezes - Cardiovascular Cardiovascular exam: Present: bradycardia, irregular rhythm. Absent: JVD - Abdominal Exam Abdominal exam: Present: soft, normal bowel sounds. Absent: distention, tenderness, guarding, rebound, rigidity - Extremities Exam Extremities exam: Present: normal inspection, full ROM, normal capillary refill. Absent: calf tenderness - Back Exam Back exam: Present: normal inspection. Absent: tenderness, CVA tenderness (R), CVA tenderness (L) - Neurological Exam Neurological exam: Present: alert, oriented X3, CN II-XII intact, motor sensory deficit, reflexes normal - Psychiatric Psychiatric exam: Present: normal affect, normal mood - Skin Skin exam: Present: warm, dry, intact, normal color - Lymphatic Lymphatic Findings: no adenopathy
[2018-07-02 15:30] LABS: Lymphocytes % 8 % (10-50); Monocytes % 4 % (2-9); Neutrophils % 86 % (42-76); Nucleated Red Blood Cells 1; RBC Morphology Normal; Total Cells Counted 100
[2018-07-02 15:33] LABS: Amphetamine/Metha Screen,Urine Negative ng/mL (<1000); Barbiturates Screen,Urine Negative ng/mL (<200); Benzodiazepines Screen,Urine Negative ng/mL (<200); Cannabinoid Screen,Urine Negative ng/mL (<50); Cocaine Screen,Urine Negative ng/mL (<300); Methadone Screen,Urine Negative ng/mL (<300); Opiate Screen,Urine Negative ng/mL (<300); Phencyclidine Screen,Urine Negative ng/mL (<25)
[2018-07-02 15:36] LABS: Bacteria,Urine 3+ /lpf; Squamous Epithelial Cell,Urine Occasional #/hpf (0-5)
[2018-07-02 18:44] LABS: Phosphorous 3.5 mg/dL (2.4-4.9)
[2018-07-02 23:11] LABS: Anion Gap 17.8 mEq/L (5-15); Calcium 7.9 mg/dL (8.5-10.1)
[2018-07-02 23:13] LABS: Potassium 6.8 mmoL/L (3.5-5.1)
[2018-07-03 06:12] LABS: Basophils % 0.3 % (0.1-2.0); Eosinophils % 0.5 % (0.1-12.0); Lymphocytes # 1.1 K/mm3 (0.7-4.5); Lymphocytes % 14.3 % (10-50); Mean Corpuscular HGB Conc 33.2 g/dL (31.8-35.4); Mean Corpuscular Hemoglobin 29.6 pg (27.0-31.2); Mean Corpuscular Volume 89.2 fl (80-94); Mean Platelet Volume 7.9 fl (7.4-10.4); Monocytes # 0.4 K/mm3 (0.1-1.0); Monocytes % 5.1 % (1.7-9.3); Neutrophils # 6.1 K/mm3 (1.8-7.8); Neutrophils % 79.7 % (37.0-80.0); Platelet Count 174 K/mm3 (142-424); Red Cell Distribution Width 13.8 % (11.5-17.5); White Blood Count 7.7 K/mm3 (4.8-10.8)
[2018-07-03 06:24] LABS: Hematocrit 27.6 % (42.0-52.0); Hemoglobin 9.2 g/dL (14.1-18.0)
[2018-07-03 06:37] LABS: Albumin Level 2.8 gm/dL (3.4-5.0); Albumin/Globulin Ratio 0.9 (1.1-1.8); Anion Gap 14.5 mEq/L (5-15); Bilirubin,Total 0.4 mg/dL (0.2-1.0); Calcium 7.8 mg/dL (8.5-10.1); Globulin 3.1 gm/dl (1.3-3.2); Phosphorous 4.3 mg/dL (2.4-4.9); Potassium 5.5 mmoL/L (3.5-5.1); Total Protein,Serum 5.9 gm/dL (6.4-8.2)
--- NOTE | 2018-07-03 07:12 | History & Physical Report ---
*Admission Date: 07/02/18 *Chief complaint: Syncope *History of present illness: 43-year-old male with insulin-dependent diabetes, suspected gastroparesis, hypertension, chronic kidney disease was brought to the hospital yesterday by EMS after he became unresponsive at home. History is taken from ER note and my discussion with the ER physician yesterday as well as the patient this morning. Patient admits he does not recall many of the events of yesterday. Around noontime patient recalls having some lunch and taking a shower. He then came into his living room that is the last thing he remembers. Per other reports he became unconscious and his started CPR and called EMS. Once EMS arrived patient did have a pulse and underwent further evaluation. Blood sugar was severely elevated. He was transferred to the hospital. In the emergency department he was found to be hyperkalemic with acute kidney injury and metabolic acidosis. Patient's hyperkalemia was treated with calcium gluconate, Kayexalate, IV infusion. He was hyperglycemic as well with blood sugar in the mid 400s. Because of the multiple metabolic issues occurring patient was admitted on an IV insulin drip. After admission repeat potassium actually mona to a high of 8. Patient was given additional breathing treatments, increase in his insulin drip, IV fluids, IV Lasix. Family and patient raised some concern about fluid overload as patient had been gaining water weight over the last 2 weeks, approximately 15 pounds. Patient's blood sugars had come down, blood pressure was stable so IV fluids were discontinued. Follow-up potassium had dropped to 6-1/2. This morning patient admits he feels a little stronger. Nursing staff reports patient is doing much better and color has improved. His blood pressure has remained elevated. IV hydralazine was ordered as needed [facility] History I have reviewed the patient's past medical history: Yes Medical History: Reports:: Congestive Heart Failure, Diabetes Mellitus Type 1, Hypertension Denies:: Cancer, Diabetes Mellitus Type 2, MRSA *Have you ever received a pneumonia vaccine?: No *Have you received a flu vaccine this season?: Yes Amputation: No - *Social History Educational Level: Completed High School Smoking Status: Never smoker Alcohol Intake: never *Occupational Status:: disabled Housing: house Household Members: spouse *Travel in the last 8 weeks: None - Psychiatric History Expresses thoughts of harming self/others: None Suicide Plan Description: No Plan Family Hx:: Cancer, Coronary Artery Disease, Diabetes, Hyperlipidemia, Hypertension, Kidney Disease, Stroke Review of Systems - Review of Systems Review of systems:: pertinent systems reviewed and negative unless documented below - Constitutional Denies body ache(s), Denies chills - ENT Denies bleeding gums - *Cardiovascular Denies chest pain, Denies chest pain at rest - *Respiratory Denies chest congestion, Denies cough, Denies shortness of breath - *Gastrointestinal Denies abdominal pain, Denies belching - *Musculoskeletal Denies abnormal walking, Denies joint pain Meds Home Medications Medication Instructions Recorded Confirmed Type Insulin Glargine,Hum.rec.anlog 42 unit SQ DAILY 07/04/17 07/02/18 History [Basaglar Kwikpen U-100] Insulin Lispro [HumaLOG 100 18 unit SQ TID 07/04/17 07/02/18 History units/mL 3mL vial (SSI)] Amitriptyline HCl [Elavil 10mg 10 mg PO DAILY 07/02/18 07/02/18 History tablet] Furosemide [Furosemide 40MG tAB] 40 mg PO DAILY 07/02/18 07/02/18 History Nebivolol HCl [Bystolic] 10 mg PO DAILY 07/02/18 07/02/18 History Potassium Chloride [Klor-con 20 20 meq PO BID 07/02/18 07/02/18 History mEq tablet] Allergies Allergy/AdvReac Type Severity Reaction Status Date / Time No Known Allergies Allergy Verified 06/21/18 20:38 Exam Vital signs and Labs for Last 24 Hours: Temp Pulse Resp BP Pulse Ox 98.1 F 82 18 142/82 H 97 07/03/18 04:00 07/03/18 05:54 07/03/18 05:54 07/03/18 05:54 07/03/18 05:54 Laboratory Results - last 24 hr 07/02/18 15:00: WBC 10.0, RBC 3.55 L, Hgb 10.5 L, Hct 34.2 L, MCV 96.3 H, MCH 29.5, MCHC 30.6 L, RDW 13.3, Plt Count 201, MPV 8.1, Neut % (Auto) 90.8 H, Lymph % (Auto) 6.3 L, [place] % (Auto) 2.5, Eos % (Auto) 0.2, Baso % (Auto) 0.2, Neut # (Auto) 9.1 H, Lymph # (Auto) 0.6 L, [place] # (Auto) 0.3, Eos # (Auto) 0.0, Baso # (Auto) 0.0, Total Counted 100, Neutrophils % (Manual) 86 H, Band Neutrophils % 1.0, Lymphocytes % (Manual) 8 L, Atypical Lymphs % 1.0, Monocytes % (Manual) 4, Nucleated RBCs 1, Platelet Estimate Normal, RBC Morphology Normal 07/02/18 15:00: Sodium 137, Potassium 7.5 H*, Chloride 106, Carbon Dioxide 22, Anion Gap 9.3, BUN 49 H, Creatinine 2.81 H, Estimated Creat Clear 50, Estimated GFR 25 L, Est GFR ( Amer) 30 L, Glucose 548 H*, Calcium 7.9 L, Total Bilirubin 0.8, AST 207 H, ALT 175 H, Alkaline Phosphatase 128 H, Total Creatine Kinase 697 H*, CK-MB (CK-2) 5.9 H, CK-MB (CK-2) Rel Index 0.8, Troponin I < 0.02, Total Protein 6.9, Albumin 3.0 L, Globulin 3.9 H, Albumin/Globulin Ratio 0.8 L 07/02/18 15:00: Acetone Level None detected 07/02/18 15:04: Urine Color Yellow, Urine Appearance Sl cloudy, Urine pH 5.5, Ur Specific [place] >= 1.030, Urine Protein 2+, Urine Glucose (UA) 3+, Urine Ketones Trace, Urine Blood Trace-i, Urine Nitrate Negative, Urine Bilirubin Negative, Urine Urobilinogen 0.2, Ur Leukocyte Esterase Negative, Urine WBC 3-5, Ur Squamous Epith Cells Occasional, Urine Bacteria 3+, Hyaline Casts 5-10 07/02/18 15:04: Urine Opiates Screen Negative, Urine Methadone Screen Negative, Ur Barbituates Screen Negative, Ur Phencyclidine Scrn Negative, Ur Amphetamines Screen Negative, U Benzodiazepines Scrn Negative, Urine Cocaine Screen Negative, U Marijuana (THC) Screen Negative 07/02/18 15:18: POC Glucose 470 H* 07/02/18 17:02: POC Glucose 466 H* 07/02/18 18:13: POC Glucose 460 H* 07/02/18 18:18: Sodium 138, Potassium 8.0 H*, Chloride 107, Carbon Dioxide 23, Anion Gap 16.0 H, BUN 48 H, Creatinine 2.38 H, Estimated Creat Clear 67, Estimated GFR 30 L, Est GFR ( Amer) 37 L D, Glucose 473 H*, Calcium 8.0 L , Phosphorus 3.5, Magnesium 2.4 H 07/02/18 18:18: Troponin I 0.02 07/02/18 20:19: POC Glucose 316 H* 07/02/18 21:00: Troponin I 0.04 07/02/18 21:00: Sodium 141, Potassium 6.8 H*, Chloride 108 H, Carbon Dioxide 22, Anion Gap 17.8 H, BUN 47 H, Creatinine 2.23 H, Estimated Creat Clear 72, Estimated GFR 33 L, Est GFR ( Amer) 39 L, Glucose 357 H D, Calcium 7.9 L 07/02/18 22:27: POC Glucose 260 H 07/02/18 23:49: Troponin I 0.05 07/02/18 23:57: POC Glucose 139 H 07/02/18 : Specimen Source Left radial, O2 % 100% nrb, ABG pH 7.22 L*, ABG pCO2 44.3, ABG pO2 231.4 H, ABG HCO3 17.6 L, ABG Total CO2 18.9 L, ABG O2 Saturation 99, ABG Base Excess -10.2 L, Amrit Test Acceptable 07/03/18 01:57: POC Glucose 91 07/03/18 04:14: POC Glucose 106 07/03/18 05:15: WBC 7.7, RBC 3.10 L, Hgb 9.2 L D, Hct 27.6 L, MCV 89.2, MCH 29.6, MCHC 33.2, RDW 13.8, Plt Count 174, MPV 7.9, Neut % (Auto) 79.7, Lymph % (Auto) 14.3, [place] % (Auto) 5.1, Eos % (Auto) 0.5, Baso % (Auto) 0.3, Neut # (Auto) 6.1, Lymph # (Auto) 1.1, [place] # (Auto) 0.4, Eos # (Auto) 0.0, Baso # (Auto) 0.0 07/03/18 05:15: Sodium 145, Potassium 5.5 H, Chloride 112 H, Carbon Dioxide 24, Anion Gap 14.5, BUN 46 H, Creatinine 1.83 H, Estimated Creat Clear 87, Estimated GFR 41 L, Est GFR ( Amer) 50 L D, Glucose 75 D, Calcium 7.8 L, Phosphorus 4.3, Magnesium 2.2, Total Bilirubin 0.4, AST 226 H, ALT 289 H D, Alkaline Phosphatase 119 H, Total Protein 5.9 L, Albumin 2.8 L, Globulin 3.1, Albumin/Globulin Ratio 0.9 L 07/03/18 05:45: POC Glucose 79 I & O for Last 24 hours: Intake & Output 06/30/18 07/01/18 07/02/18 07/03/18 11:59 11:59 11:59 12:59 Intake Total 2690 / 2690 Output Total 1650 / 1650 Balance 1040 / 1040 Weight 255 lb 11.779 oz - Constitutional no acute distress - *Routine Neck Exam Present: supple - *Routine Respiratory Exam Present: CTA bilaterally - *Routine Cardiovascular Exam Present: RRR, Normal S1, Normal S2 - *Routine Abdominal Exam Present: soft, normoactive bowel sounds. Absent: tenderness, distended, rebound - *Routine Extremities Exam Present: edema. Absent: clubbing - *Routine Skin Exam Present: intact. Absent: cyanosis, erythema Assessment and Plan (1) Hyperkalemia Current visit: Yes Status: Acute Category: Medical Code(s): E87.5 - Hyperkalemia (2) Acute kidney injury Current visit: Yes Status: Acute Category: Medical Code(s): N17.9 - Acute kidney failure, unspecified (3) Metabolic acidosis due to diabetes mellitus Current visit: Yes Status: Acute Category: Medical Code(s): E11.69 - Type 2 diabetes mellitus with other specified complication; E87.2 - Acidosis (4) Hyperglycemia due to type 1 diabetes mellitus Current visit: Yes Status: Acute Category: Medical Code(s): E10.65 - Type 1 diabetes mellitus with hyperglycemia (5) Diabetes mellitus with neuropathy Current visit: Yes Status: Acute Category: Medical Code(s): E11.40 - Type 2 diabetes mellitus with diabetic neuropathy, unspecified (6) Diabetes mellitus with renal manifestations, uncontrolled Current visit: Yes Status: Acute Category: Medical Code(s): E11.29 - Type 2 diabetes mellitus with other diabetic kidney complication; E11.65 - Type 2 diabetes mellitus with hyperglycemia (7) Diabetic gastroparesis Current visit: No Status: Acute Category: Medical Code(s): E11.43 - Type 2 diabetes mellitus with diabetic autonomic (poly)neuropathy; K31.84 - Gastroparesis (8) Essential hypertension Current visit: No Status: Acute Category: Medical Code(s): I10 - Essential (primary) hypertension (9) IDDM (insulin dependent diabetes mellitus) Current visit: No Status: Acute Category: Medical Code(s): E11.9 - Type 2 diabetes mellitus without complications; Z79.4 - termite technician (current) use of insulin (10) Syncope Current visit: No Status: Acute Category: Medical Code(s): R55 - Syncope and collapse (11) Uncontrolled diabetes mellitus Current visit: No Status: Acute Category: Medical Code(s): E11.65 - Type 2 diabetes mellitus with hyperglycemia - Assessment and plan all Dx Assessment and Plan for all problems:: 1. Potassium is trending down. Continue Kayexalate. Repeat potassium daily 2. Hold IV fluids due to fluid retention. Monitor renal function. Once renal function is improved will start some oral Lasix 3. Encourage patient to ambulate today 4. Continue telemetry monitoring for signs of arrhythmia. I suspect the hyperkalemia contributed to the development of the A. fib with slow ventricular response 5. Continue home dosing of insulin 6. Patient will be transferred out of stepdown. 7. Begin carvedilol 3.125 mg twice daily for hypertension. Continue as needed hydralazine
--- NOTE | 2018-07-03 14:46 | Pharmacy Consult Notes ---
[facility] Pharmacy VTE Monitoring - Patient Demographics Admission date: 07/03/18 Report Date: 07/03/18 Time: 14:45 Allergies/Adverse Reactions: Patient Allergies No Known Allergies Allergy (Verified 06/21/18 20:38) Height: 1.83 m Weight: 116 kg Patient Problems: Current Active Problems DKA (diabetic ketoacidoses) (Acute) Hyperkalemia (Acute) A-fib (Acute) Acute kidney injury (Acute) Hyperglycemia due to type 1 diabetes mellitus (Acute) Diabetes mellitus with neuropathy (Acute) Diabetes mellitus with renal manifestations, uncontrolled (Acute) Metabolic acidosis due to diabetes mellitus (Acute) - VTE Risk Labs: VTE Related Lab Results Hgb 9.2 g/dL (14.1-18.0) L D 07/03/18 05:15 Hct 27.6 % (42.0-52.0) L 07/03/18 05:15 Plt Count 174 K/mm3 (142-424) 07/03/18 05:15 BUN 46 mg/dL (7-18) H 07/03/18 05:15 Creatinine 1.83 mg/dL (0.70-1.30) H 07/03/18 05:15 Estimated Creat Clear 87 mL/min (50-200) 07/03/18 05:15 Was VTE Risk Assessment Performed: Yes VTE Score: 2 VTE Risk Level: Very Low Risk - Prophylaxis Types of VTE Prophylaxis: TEDS Knee High (JUAN HOSE ORDER PLACED) Location of Applied Device: Not Applicable
[2018-07-04 07:01] LABS: Basophils % 0.2 % (0.1-2.0); Eosinophils # 0.2 K/mm3 (0.0-0.4); Hematocrit 30.8 % (42.0-52.0); Hemoglobin 10.2 g/dL (14.1-18.0); Lymphocytes # 0.7 K/mm3 (0.7-4.5); Lymphocytes % 8.7 % (10-50); Mean Corpuscular HGB Conc 33.1 g/dL (31.8-35.4); Mean Corpuscular Hemoglobin 29.5 pg (27.0-31.2); Mean Corpuscular Volume 89.2 fl (80-94); Monocytes # 0.4 K/mm3 (0.1-1.0); Monocytes % 4.6 % (1.7-9.3); Neutrophils # 7.1 K/mm3 (1.8-7.8); Neutrophils % 84.5 % (37.0-80.0); Platelet Count 229 K/mm3 (142-424); Red Blood Count 3.45 M/mm3 (4.60-6.20); White Blood Count 8.4 K/mm3 (4.8-10.8)
--- NOTE | 2018-07-04 07:05 | Progress Note ---
Internal Medicine - PN: Subj *Date: 07/04/18 *Time: 07:03 Interval history: Patient has no complaints. He admits he feels swollen. He had some retching this morning triggered by postnasal drainage but denies vomiting or diarrhea. Blood pressures have remained elevated. Patient is remained on telemetry over the last 24 hours and there is not been any recurrent atrial fibrillation. Exam Vital signs and Labs for Last 24 Hours: Temp Pulse Resp BP Pulse Ox 98.1 F 87 12 165/77 H 90 L 07/04/18 04:00 07/04/18 04:00 07/04/18 04:00 07/04/18 04:00 07/04/18 04:00 Laboratory Results - last 24 hr 07/03/18 10:56: POC Glucose 138 H 07/03/18 21:35: POC Glucose 154 H 07/04/18 06:08: POC Glucose 70 07/04/18 06:18: WBC 8.4, RBC 3.45 L, Hgb 10.2 L, Hct 30.8 L, MCV 89.2, MCH 29.5, MCHC 33.1, RDW 14.0, Plt Count 229 D, MPV 8.0, Neut % (Auto) 84.5 H, Lymph % (Auto) 8.7 L, [place] % (Auto) 4.6, Eos % (Auto) 2.0, Baso % (Auto) 0.2, Neut # (Auto) 7.1, Lymph # (Auto) 0.7, [place] # (Auto) 0.4, Eos # (Auto) 0.2, Baso # (Auto) 0.0 I & O for Last 24 hours: Intake & Output 07/01/18 07/02/18 07/03/18 07/04/18 10:59 10:59 11:59 11:59 Intake Total 720 / 720 Output Total Balance 720 / 720 Weight 255 lb Microbiology Reports for the Last 24 Hours: Microbiology 07/02/18 15:04 Urine,Catheterized Urine Culture - Preliminary NO GROWTH AFTER 24 HOURS Narrative: Patient is awake and alert and sitting up on the side of the bed. Lungs are clear to auscultation. Heart has a regular rate and rhythm. Abdomen is soft and obese. Lower extremities have 1+ edema. Assessment and Plan (1) Hyperkalemia Current visit: Yes Status: Acute Category: Medical Code(s): E87.5 - Hyperkalemia (2) Acute kidney injury Current visit: Yes Status: Acute Category: Medical Code(s): N17.9 - Acute kidney failure, unspecified (3) Metabolic acidosis due to diabetes mellitus Current visit: Yes Status: Acute Category: Medical Code(s): E11.69 - Type 2 diabetes mellitus with other specified complication; E87.2 - Acidosis (4) Hyperglycemia due to type 1 diabetes mellitus Current visit: Yes Status: Acute Category: Medical Code(s): E10.65 - Type 1 diabetes mellitus with hyperglycemia (5) Diabetes mellitus with neuropathy Current visit: Yes Status: Acute Category: Medical Code(s): E11.40 - Type 2 diabetes mellitus with diabetic neuropathy, unspecified (6) Diabetes mellitus with renal manifestations, uncontrolled Current visit: Yes Status: Acute Category: Medical Code(s): E11.29 - Type 2 diabetes mellitus with other diabetic kidney complication; E11.65 - Type 2 diabetes mellitus with hyperglycemia (7) Diabetic gastroparesis Current visit: No Status: Acute Category: Medical Code(s): E11.43 - Type 2 diabetes mellitus with diabetic autonomic (poly)neuropathy; K31.84 - Gastroparesis (8) Essential hypertension Current visit: No Status: Acute Category: Medical Code(s): I10 - Essential (primary) hypertension (9) IDDM (insulin dependent diabetes mellitus) Current visit: No Status: Acute Category: Medical Code(s): E11.9 - Type 2 diabetes mellitus without complications; Z79.4 - joint terminal attack controller (current) use of insulin (10) Syncope Current visit: No Status: Acute Category: Medical Code(s): R55 - Syncope and collapse (11) Uncontrolled diabetes mellitus Current visit: No Status: Acute Category: Medical Code(s): E11.65 - Type 2 diabetes mellitus with hyperglycemia - Assessment and plan all Dx Assessment and Plan for all problems:: 1. Await labs this morning and ideally we will begin reinitiation of his furosemide to help with fluid retention. Continue close monitoring of potassium 2. Blood sugars are under very tight control at this time which is the opposite of how the last 3 weeks and gone for the patient at home. Continue fingersticks with meals and in the morning. I am going to decrease his sliding scale to a medium intensity sliding scale 3. Await liver function tests this morning 4. Encourage patient ambulate 5. Increase carvedilol.
[2018-07-04 07:19] LABS: Calcium 8.3 mg/dL (8.5-10.1)
[2018-07-04 07:22] LABS: Bilirubin,Direct 0.1 mg/dL (0.0-0.2); Bilirubin,Indirect 0.4 mg/dL (0.0-0.9); Bilirubin,Total 0.5 mg/dL (0.2-1.0); Total Protein,Serum 6.5 gm/dL (6.4-8.2)
--- NOTE | 2018-07-04 19:54 | Cardiology Report ---
PROCEDURE: 2-D M-mode and color Doppler study INDICATIONS FOR THE TEST: Chest pain COPD Heart Murmur Tobacco Smoking Palpitations Fatigue Syncope + Edema Hypertension+Diabetes Mellitus+ Rheumatic Fever SOB+CASANOVA Obesity+Hyperlipidemia Family History HD Additional History CHF, CKD PATIENT INFORMATION HEIGHT: 74 WEIGHT:255 GENDER: Male B/P:165/77 2-D/M-MODE INTERPRETATION: 2-D MEASUREMENTS OBSERVED VALUES IN CMS Right Ventricular Dimension (RVDd) 2.0 Interventricular Septum (Thickness)(IVsd) 1.7 Left Ventricular Internal Dimensions(LVIDd) 4.9 Left Ventricular Posterior Wall (Thickness)(LVPWd) 1.2 Aortic Root 2.9 Aortic Cusp Separation 1.9 Left Atrial Dimensions (LAD) 3.8 2D 1. Left atrium is mildly enlarged, left ventricle is normal size, there is moderate concentric left ventricular hypertrophy, there is hyperdynamic left ventricular systolic function, visually estimated ejection fraction over 65% with no regional wall motion abnormality. 2. The right atrium and right ventricle are normal size and contractility. 3. The aortic valve is minimally thickened and fibrosed leaflet continue to display good mobility, morphologically there is no aortic stenosis 4. The mitral and tricuspid valve leaflets are grossly normal. 5. The pulmonic valve is poorly visualized. 6. Small pericardial effusion noted. DOPPLER INTERROGATION: Doppler interrogation of the aortic, mitral and tricuspid valvular presence of increased velocities across the aortic and mitral valve is likely secondary to increased cardiac output state, there is morphologically no aortic stenosis or aortic insufficiency. Mild mitral and tricuspid regurgitation, tricuspid regurgitation jet velocity is inadequate for calculation of the right ventricular systolic pressure, diastolic parameters are inconclusive. CONCLUSION: 1. Mildly enlarged atrium, normal left ventricular size, moderate concentric left ventricular hypertrophy, hyperdynamic left ventricular systolic function, visually estimated ejection fraction over 65% with no regional wall motion abnormality, diastolic parameters are inconclusive. Doppler evidence of high cardiac output state. 2. Mild mitral and tricuspid regurgitation 3. Small pericardial effusion noted.
--- NOTE | 2018-07-05 06:57 | Progress Note ---
Internal Medicine - PN: Subj *Date: 07/05/18 *Time: 06:54 Interval history: Patient reports no complaints this morning. His blood sugar did drop earlier this morning and was treated. He denies pain other than his diabetic neuropathy. He denies shortness of breath. Blood pressure has remained elevated. Echocardiogram revealed normal ejection fraction. Right ventricular systolic pressure could not be calculated Exam Vital signs and Labs for Last 24 Hours: Temp Pulse Resp BP Pulse Ox 97.4 F L 79 15 186/90 H 97 07/05/18 04:00 07/05/18 04:00 07/05/18 04:00 07/05/18 04:00 07/05/18 04:00 Laboratory Results - last 24 hr 07/03/18 16:21: POC Glucose 184 H 07/04/18 06:18: WBC 8.4, RBC 3.45 L, Hgb 10.2 L, Hct 30.8 L, MCV 89.2, MCH 29.5, MCHC 33.1, RDW 14.0, Plt Count 229 D, MPV 8.0, Neut % (Auto) 84.5 H, Lymph % (Auto) 8.7 L, [place] % (Auto) 4.6, Eos % (Auto) 2.0, Baso % (Auto) 0.2, Neut # (Auto) 7.1, Lymph # (Auto) 0.7, [place] # (Auto) 0.4, Eos # (Auto) 0.2, Baso # (Auto) 0.0 07/04/18 06:18: Sodium 144, Potassium 5.0, Chloride 110 H, Carbon Dioxide 23, Anion Gap 16.0 H, BUN 38 H, Creatinine 1.31 H D, Estimated Creat Clear 121, Estimated GFR 60, Est GFR ( Amer) 73 D, Glucose 68 L, Calcium 8.3 L 07/04/18 06:18: Total Bilirubin 0.5, Direct Bilirubin 0.1, Indirect Bilirubin 0.4, AST 122 H D, ALT 249 H, Alkaline Phosphatase 110, Total Protein 6.5, Albumin 3.0 L 07/04/18 11:44: POC Glucose 91 07/04/18 16:24: POC Glucose 202 H 07/04/18 21:05: POC Glucose 134 H I & O for Last 24 hours: Intake & Output 0307/03/18 07/04/18 07/05/18 10:59 11:59 11:59 11:59 Intake Total 720 / 720 240 / 240 Output Total 2400 / 2400 Balance 720 / 720 -2160 / -2160 Weight 255 lb 253 lb 8.505 oz Microbiology Reports for the Last 24 Hours: Microbiology 07/02/18 15:04 Urine,Catheterized Urine Culture - Final NO GROWTH AFTER 48 HOURS Narrative: Patient appears comfortable and well. ENT exam reveals a moist oropharynx. Neck is without jugular venous distention. Lungs are clear. Heart has a regular rate and rhythm. Lower extremities have 1+ edema. Assessment and Plan (1) Acute diastolic heart failure Current visit: Yes Status: Acute Category: Medical Code(s): I50.31 - Acute diastolic (congestive) heart failure Improving. Continue diuresis with Lasix. Await labs this morning. Adjust antihypertensives. Anticipate discharge home this afternoon (2) Hyperkalemia Current visit: Yes Status: Acute Category: Medical Code(s): E87.5 - Hyperkalemia Await morning labs (3) Acute kidney injury Current visit: Yes Status: Acute Category: Medical Code(s): N17.9 - Acute kidney failure, unspecified Improved (4) Metabolic acidosis due to diabetes mellitus Current visit: Yes Status: Acute Category: Medical Code(s): E11.69 - Type 2 diabetes mellitus with other specified complication; E87.2 - Acidosis (5) Hyperglycemia due to type 1 diabetes mellitus Current visit: Yes Status: Acute Category: Medical Code(s): E10.65 - Type 1 diabetes mellitus with hyperglycemia (6) Diabetes mellitus with neuropathy Current visit: Yes Status: Acute Category: Medical Code(s): E11.40 - Type 2 diabetes mellitus with diabetic neuropathy, unspecified (7) Diabetes mellitus with renal manifestations, uncontrolled Current visit: Yes Status: Acute Category: Medical Code(s): E11.29 - Type 2 diabetes mellitus with other diabetic kidney complication; E11.65 - Type 2 diabetes mellitus with hyperglycemia (8) Diabetic gastroparesis Current visit: No Status: Acute Category: Medical Code(s): E11.43 - Type 2 diabetes mellitus with diabetic autonomic (poly)neuropathy; K31.84 - Gastroparesis (9) Essential hypertension Current visit: No Status: Acute Category: Medical Code(s): I10 - Essential (primary) hypertension (10) IDDM (insulin dependent diabetes mellitus) Current visit: No Status: Acute Category: Medical Code(s): E11.9 - Type 2 diabetes mellitus without complications; Z79.4 - nursing home (current) use of insulin (11) Syncope Current visit: No Status: Acute Category: Medical Code(s): R55 - Syncope and collapse (12) Uncontrolled diabetes mellitus Current visit: No Status: Acute Category: Medical Code(s): E11.65 - Type 2 diabetes mellitus with hyperglycemia (13) Obstructive sleep apnea Current visit: Yes Status: Acute Category: Medical Code(s): G47.33 - Obstructive sleep apnea (adult) (pediatric) Patient has had room air sats in the 70s while asleep. Oxygen saturation improved with application of oxygen. Patient does wear oxygen at night at home and has a diagnosis of mild sleep apnea. He has had witnessed apneic spells here. We will arrange CPAP as an outpatien Patient does not recall when his sleep study was. If we cannot find it we will order Hopper as an outpatient
[2018-07-05 07:25] LABS: Basophils # 0.1 K/mm3 (0-0.2); Basophils % 1.2 % (0.1-2.0); Eosinophils # 0.2 K/mm3 (0.0-0.4); Eosinophils % 2.2 % (0.1-12.0); Hematocrit 29.2 % (42.0-52.0); Hemoglobin 9.7 g/dL (14.1-18.0); Lymphocytes # 1.1 K/mm3 (0.7-4.5); Lymphocytes % 16.2 % (10-50); Mean Corpuscular HGB Conc 33.4 g/dL (31.8-35.4); Mean Corpuscular Hemoglobin 29.2 pg (27.0-31.2); Mean Corpuscular Volume 87.4 fl (80-94); Mean Platelet Volume 8.3 fl (7.4-10.4); Monocytes # 0.3 K/mm3 (0.1-1.0); Monocytes % 3.6 % (1.7-9.3); Neutrophils # 5.5 K/mm3 (1.8-7.8); Platelet Count 205 K/mm3 (142-424); Red Blood Count 3.34 M/mm3 (4.60-6.20); Red Cell Distribution Width 13.6 % (11.5-17.5); White Blood Count 7.1 K/mm3 (4.8-10.8)
[2018-07-05 07:53] LABS: Anion Gap 20.7 mEq/L (5-15); Calcium 8.9 mg/dL (8.5-10.1); Potassium 5.7 mmoL/L (3.5-5.1)
--- NOTE | 2018-07-06 06:44 | Progress Note ---
Internal Medicine - PN: Subj *Date: 07/06/18 *Time: 06:42 Interval history: Patient has no complaints this morning. Yesterday his potassium increased and this resulted in cancellation of his anticipated discharge. Patient was started on sodium bicarbonate as his anion gap widened a little more. Patient feels well Exam Vital signs and Labs for Last 24 Hours: Temp Pulse Resp BP Pulse Ox 98.6 F 87 16 164/78 H 98 07/06/18 04:00 07/06/18 04:00 07/06/18 04:00 07/06/18 04:00 07/06/18 04:00 Laboratory Results - last 24 hr 07/05/18 06:31: POC Glucose 60 L 07/05/18 06:56: POC Glucose 85 07/05/18 06:57: WBC 7.1, RBC 3.34 L, Hgb 9.7 L, Hct 29.2 L, MCV 87.4, MCH 29.2, MCHC 33.4, RDW 13.6, Plt Count 205, MPV 8.3, Neut % (Auto) 78.0, Lymph % (Auto) 16.2, [place] % (Auto) 3.6, Eos % (Auto) 2.2, Baso % (Auto) 1.2, Neut # (Auto) 5.5, Lymph # (Auto) 1.1, [place] # (Auto) 0.3, Eos # (Auto) 0.2, Baso # (Auto) 0.1 07/05/18 06:57: Sodium 149 H, Potassium 5.7 H, Chloride 113 H, Carbon Dioxide 21, Anion Gap 20.7 H, BUN 39 H, Creatinine 0.56 L D, Estimated Creat Clear 282, Estimated GFR 161, Est GFR ( Amer) 195 D, Glucose 69 L, Calcium 8.9 07/05/18 09:06: POC Glucose 184 H 07/05/18 11:31: POC Glucose 219 H 07/05/18 16:33: POC Glucose 225 H 07/05/18 20:39: POC Glucose 291 H 07/06/18 05:39: POC Glucose 147 H I & O for Last 24 hours: Intake & Output 07/03/18 07/04/18 07/05/18 07/06/18 11:59 11:59 11:59 11:59 Intake Total 720 / 720 960 / 960 Output Total 3600 / 3600 1200 / 1200 Balance 720 / 720 -2640 / -2640 -1200 / -1200 Weight 255 lb 253 lb 8.505 oz Narrative: Patient looks well. Lungs have improved aeration. Heart has a regular rate and rhythm. Abdomen is soft, less distended and less swollen. Lower extremities have trace edema over the tibias Assessment and Plan (1) Acute diastolic heart failure Current visit: Yes Status: Acute Category: Medical Code(s): I50.31 - Acute diastolic (congestive) heart failure (2) Hyperkalemia Current visit: Yes Status: Acute Category: Medical Code(s): E87.5 - Hyperkalemia (3) Acute kidney injury Current visit: Yes Status: Acute Category: Medical Code(s): N17.9 - Acute kidney failure, unspecified (4) Metabolic acidosis due to diabetes mellitus Current visit: Yes Status: Acute Category: Medical Code(s): E11.69 - Type 2 diabetes mellitus with other specified complication; E87.2 - Acidosis (5) Hyperglycemia due to type 1 diabetes mellitus Current visit: Yes Status: Acute Category: Medical Code(s): E10.65 - Type 1 diabetes mellitus with hyperglycemia (6) Diabetes mellitus with neuropathy Current visit: Yes Status: Acute Category: Medical Code(s): E11.40 - Type 2 diabetes mellitus with diabetic neuropathy, unspecified (7) Diabetes mellitus with renal manifestations, uncontrolled Current visit: Yes Status: Acute Category: Medical Code(s): E11.29 - Type 2 diabetes mellitus with other diabetic kidney complication; E11.65 - Type 2 diabetes mellitus with hyperglycemia (8) Diabetic gastroparesis Current visit: No Status: Acute Category: Medical Code(s): E11.43 - Type 2 diabetes mellitus with diabetic autonomic (poly)neuropathy; K31.84 - Gastroparesis (9) Essential hypertension Current visit: No Status: Acute Category: Medical Code(s): I10 - Essential (primary) hypertension (10) IDDM (insulin dependent diabetes mellitus) Current visit: No Status: Acute Category: Medical Code(s): E11.9 - Type 2 diabetes mellitus without complications; Z79.4 - ad terminal makeup operator (current) use of insulin (11) Syncope Current visit: No Status: Acute Category: Medical Code(s): R55 - Syncope and collapse (12) Uncontrolled diabetes mellitus Current visit: No Status: Acute Category: Medical Code(s): E11.65 - Type 2 diabetes mellitus with hyperglycemia (13) Obstructive sleep apnea Current visit: Yes Status: Acute Category: Medical Code(s): G47.33 - Obstructive sleep apnea (adult) (pediatric) - Assessment and plan all Dx Assessment and Plan for all problems:: Await morning labs. If potassium has improved patient will be discharged home. If potassium has risen Kayexalate will be restarted
[2018-07-06 07:35] LABS: Basophils % 0.5 % (0.1-2.0); Eosinophils # 0.2 K/mm3 (0.0-0.4); Eosinophils % 3.8 % (0.1-12.0); Hematocrit 27.4 % (42.0-52.0); Hemoglobin 9.3 g/dL (14.1-18.0); Lymphocytes # 0.9 K/mm3 (0.7-4.5); Lymphocytes % 15.1 % (10-50); Mean Corpuscular HGB Conc 33.9 g/dL (31.8-35.4); Mean Corpuscular Hemoglobin 30.1 pg (27.0-31.2); Mean Corpuscular Volume 88.7 fl (80-94); Mean Platelet Volume 8.1 fl (7.4-10.4); Monocytes # 0.2 K/mm3 (0.1-1.0); Monocytes % 3.6 % (1.7-9.3); Neutrophils # 4.6 K/mm3 (1.8-7.8); Neutrophils % 77.6 % (37.0-80.0); Platelet Count 207 K/mm3 (142-424); Red Blood Count 3.09 M/mm3 (4.60-6.20); Red Cell Distribution Width 13.6 % (11.5-17.5); White Blood Count 5.9 K/mm3 (4.8-10.8)
[2018-07-06 08:03] LABS: Anion Gap 17.5 mEq/L (5-15); Calcium 8.2 mg/dL (8.5-10.1); Potassium 5.5 mmoL/L (3.5-5.1)
--- NOTE | 2018-07-07 07:26 | Progress Note ---
Internal Medicine - PN: Subj *Date: 07/07/18 *Time: 07:25 Interval history: Patient feels well and has no complaints. Potassium dropped only slightly yesterday so Kayexalate was added to his regimen. Labs are pending at this time Exam Vital signs and Labs for Last 24 Hours: Temp Pulse Resp BP Pulse Ox 98.3 F 88 16 145/70 H 92 L 07/07/18 04:00 07/07/18 04:00 07/07/18 04:00 07/07/18 04:00 07/07/18 04:00 Laboratory Results - last 24 hr 07/06/18 06:42: WBC 5.9, RBC 3.09 L, Hgb 9.3 L, Hct 27.4 L, MCV 88.7, MCH 30.1, MCHC 33.9, RDW 13.6, Plt Count 207, MPV 8.1, Neut % (Auto) 77.6, Lymph % (Auto) 15.1, [place] % (Auto) 3.6, Eos % (Auto) 3.8, Baso % (Auto) 0.5, Neut # (Auto) 4.6, Lymph # (Auto) 0.9, [place] # (Auto) 0.2, Eos # (Auto) 0.2, Baso # (Auto) 0.0 07/06/18 06:42: Sodium 146 H, Potassium 5.5 H, Chloride 110 H, Carbon Dioxide 24, Anion Gap 17.5 H, BUN 44 H, Creatinine 1.47 H D, Estimated Creat Clear 108, Estimated GFR 53 L, Est GFR ( Amer) 64 D, Glucose 138 H D, Calcium 8.2 L 07/06/18 10:09: POC Glucose 192 H 07/06/18 11:08: POC Glucose 171 H 07/06/18 16:06: POC Glucose 138 H 07/06/18 20:37: POC Glucose 323 H* 07/07/18 06:14: POC Glucose 51 L 07/07/18 06:35: POC Glucose 65 L 07/07/18 06:58: POC Glucose 116 H I & O for Last 24 hours: Intake & Output 07/04/18 07/05/18 07/06/18 07/07/18 11:59 11:59 11:59 11:59 Intake Total 720 / 720 960 / 960 480 / 480 240 / 240 Output Total 3600 / 3600 1200 / 1200 Balance 720 / 720 -2640 / -2640 -720 / -720 240 / 240 Weight 255 lb 253 lb 8.505 oz - Constitutional no acute distress - *Routine Respiratory Exam Present: CTA bilaterally - *Routine Cardiovascular Exam Present: RRR, Normal S1, Normal S2 Assessment and Plan (1) Acute diastolic heart failure Current visit: Yes Status: Acute Category: Medical Code(s): I50.31 - Acute diastolic (congestive) heart failure (2) Hyperkalemia Current visit: Yes Status: Acute Category: Medical Code(s): E87.5 - Hyperkalemia (3) Acute kidney injury Current visit: Yes Status: Acute Category: Medical Code(s): N17.9 - Acute kidney failure, unspecified (4) Metabolic acidosis due to diabetes mellitus Current visit: Yes Status: Acute Category: Medical Code(s): E11.69 - Type 2 diabetes mellitus with other specified complication; E87.2 - Acidosis (5) Hyperglycemia due to type 1 diabetes mellitus Current visit: Yes Status: Acute Category: Medical Code(s): E10.65 - Type 1 diabetes mellitus with hyperglycemia (6) Diabetes mellitus with neuropathy Current visit: Yes Status: Acute Category: Medical Code(s): E11.40 - Type 2 diabetes mellitus with diabetic neuropathy, unspecified (7) Diabetes mellitus with renal manifestations, uncontrolled Current visit: Yes Status: Acute Category: Medical Code(s): E11.29 - Type 2 diabetes mellitus with other diabetic kidney complication; E11.65 - Type 2 diabetes mellitus with hyperglycemia (8) Diabetic gastroparesis Current visit: No Status: Acute Category: Medical Code(s): E11.43 - Type 2 diabetes mellitus with diabetic autonomic (poly)neuropathy; K31.84 - Gastroparesis (9) Essential hypertension Current visit: No Status: Acute Category: Medical Code(s): I10 - Essential (primary) hypertension (10) IDDM (insulin dependent diabetes mellitus) Current visit: No Status: Acute Category: Medical Code(s): E11.9 - Type 2 diabetes mellitus without complications; Z79.4 - petroleum terminal plant operator (current) use of insulin (11) Syncope Current visit: No Status: Acute Category: Medical Code(s): R55 - Syncope and collapse (12) Uncontrolled diabetes mellitus Current visit: No Status: Acute Category: Medical Code(s): E11.65 - Type 2 diabetes mellitus with hyperglycemia (13) Obstructive sleep apnea Current visit: Yes Status: Acute Category: Medical Code(s): G47.33 - Obstructive sleep apnea (adult) (pediatric) - Assessment and plan all Dx Assessment and Plan for all problems:: Await morning labs. Plan will be for patient to be discharged home unless his potassium is risen
--- NOTE | 2018-07-07 07:31 | Discharge Summary ---
General - General Admission date:: 07/02/18 Discharge date: 07/07/18 HPI HPI: 43-year-old male with insulin-dependent diabetes, suspected gastroparesis, hypertension, chronic kidney disease was brought to the hospital yesterday by EMS after he became unresponsive at home. History is taken from ER note and my discussion with the ER physician yesterday as well as the patient this morning. Patient admits he does not recall many of the events of yesterday. Around noontime patient recalls having some lunch and taking a shower. He then came into his living room that is the last thing he remembers. Per other reports he became unconscious and his started CPR and called EMS. Once EMS arrived patient did have a pulse and underwent further evaluation. Blood sugar was severely elevated. He was transferred to the hospital. In the emergency department he was found to be hyperkalemic with acute kidney injury and metabolic acidosis. Patient's hyperkalemia was treated with calcium gluconate, Kayexalate, IV infusion. He was hyperglycemic as well with blood sugar in the mid 400s. Because of the multiple metabolic issues occurring patient was admitted on an IV insulin drip. After admission repeat potassium actually mona to a high of 8. Patient was given additional breathing treatments, increase in his insulin drip, IV fluids, IV Lasix, increase in frequency of Kayexalate. Family and patient raised some concern about fluid overload as patient had been gaining water weight over the last 2 weeks, approximately 15 pounds. Patient's blood sugars had come down, blood pressure was stable so IV fluids were discontinued. Follow-up potassium had dropped to 6.5. This morning patient admits he feels a little stronger. Nursing staff reports patient is doing much better and color has improved. His blood pressure has remained elevated. IV hydralazine was ordered as needed Hospital Course Hospital Course: For patient's hyperkalemia it decreased to a level of 5. At that point he was on Lasix 40 mg intravenously twice daily, Kayexalate 3 times a day, home dosing of insulin. Kayexalate was discontinued. However after Kayexalate was discontinued patient's potassium gradually mona to a level of 5.8. During this time patient's anion gap widened despite good control of his blood sugars. I believe this is indicative of underlying renal disease and explained to the patient he will need nephrology evaluation as an outpatient. Because of the metabolic acidosis that was developing I added sodium bicarbonate. Potassium then decreased slightly. However his potassium was not within range and so Kayexalate was added back into his regimen. At discharge his potassium level was 3.9. Patient had severely elevated blood pressure on admission. Changes were made to his antihypertensive regimen. In addition to the Lasix 40 mg twice daily he was receiving he was placed on carvedilol which was gradually increased to a maximum dose of 25 mg twice daily as well as amlodipine 10 mg daily. With this regimen patient's blood pressure still consistently remained in the 150s-160s systolic. Renal function fluctuated during the course of hospitalization although I believe some of his numbers are due to the fact that BMPs were done through a fingerstick as opposed to a venous draw. Patient had acute diastolic heart failure. He did gain 15 pounds in water weight over the preceding 2-3 weeks as an outpatient. Family raise concern about IV fluids. Shortly after admission they were discontinued. Patient was placed on Lasix 40 mg intravenously twice daily which did an excellent job at diuresing the patient. Patient has underlying sleep apnea but does not use CPAP at home. He cannot recall when his sleep study was. This will be investigated as an outpatient. For the time being he will need to use his home oxygen which nursing reported patient did not always want to use. Patient has underlying diabetes and is insulin-dependent. He was placed on his home regimen once he was taken off the insulin drip for his hyperglycemia. On patient's home regimen his blood sugars were actually under decent control. Evening blood sugars were usually the highest and could reach 200 or even 300. Blood sugars to the day were generally in the 100s and patient even had hypoglycemia in the mornings. No adjustments were made to his insulin Objective Vital signs: Temp Pulse Resp BP Pulse Ox 98.3 F 88 16 145/70 H 92 L 07/07/18 04:00 07/07/18 04:00 07/07/18 04:00 07/07/18 04:00 07/07/18 04:00 Results Labs on day of discharge: Labs from last 24 hours 07/07/18 07/07/18 07/07/18 06:58 06:35 06:14 WBC RBC Hgb Hct MCV MCH MCHC RDW Plt Count MPV Neut % (Auto) Lymph % (Auto) Stone % (Auto) Eos % (Auto) Baso % (Auto) Neut # (Auto) Lymph # (Auto) Stone # (Auto) Eos # (Auto) Baso # (Auto) Sodium Potassium Chloride Carbon Dioxide Anion Gap BUN Creatinine Estimated Creat Clear Estimated GFR Est GFR ( Amer) Glucose POC Glucose 116 H 65 L 51 L Calcium 07/06/18 07/06/18 07/06/18 20:37 16:06 11:08 WBC RBC Hgb Hct MCV MCH MCHC RDW Plt Count MPV Neut % (Auto) Lymph % (Auto) Stone % (Auto) Eos % (Auto) Baso % (Auto) Neut # (Auto) Lymph # (Auto) Stone # (Auto) Eos # (Auto) Baso # (Auto) Sodium Potassium Chloride Carbon Dioxide Anion Gap BUN Creatinine Estimated Creat Clear Estimated GFR Est GFR ( Amer) Glucose POC Glucose 323 H* 138 H 171 H Calcium 07/06/18 07/06/18 07/06/18 10:09 06:42 06:42 WBC 5.9 RBC 3.09 L Hgb 9.3 L Hct 27.4 L MCV 88.7 MCH 30.1 MCHC 33.9 RDW 13.6 Plt Count 207 MPV 8.1 Neut % (Auto) 77.6 Lymph % (Auto) 15.1 Stone % (Auto) 3.6 Eos % (Auto) 3.8 Baso % (Auto) 0.5 Neut # (Auto) 4.6 Lymph # (Auto) 0.9 Stone # (Auto) 0.2 Eos # (Auto) 0.2 Baso # (Auto) 0.0 Sodium 146 H Potassium 5.5 H Chloride 110 H Carbon Dioxide 24 Anion Gap 17.5 H BUN 44 H Creatinine 1.47 H D Estimated Creat Clear 108 Estimated GFR 53 L Est GFR ( Amer) 64 D Glucose 138 H D POC Glucose 192 H Calcium 8.2 L DS: Diagnosis - Discharge Diagnosis (1) Acute diastolic heart failure Status: Acute (2) Hyperkalemia Status: Acute (3) Acute kidney injury Status: Acute (4) Metabolic acidosis due to diabetes mellitus Status: Acute (5) Hyperglycemia due to type 1 diabetes mellitus Status: Acute (6) Diabetes mellitus with neuropathy Status: Acute (7) Diabetes mellitus with renal manifestations, uncontrolled Status: Acute (8) Diabetic gastroparesis Status: Acute (9) Essential hypertension Status: Acute (10) IDDM (insulin dependent diabetes mellitus) Status: Acute (11) Syncope Status: Acute (12) Uncontrolled diabetes mellitus Status: Acute (13) Obstructive sleep apnea Status: Acute Discharge Plan - Patient Discharge Instructions ACTIVITY: Continue current activity DIET: continue same diet Patient Instructions: Low Glycemic Index Diets (Alternative Therapy), Low- Carbohydrate Diet (Alternative Therapy), Two Gram Sodium Diet, Carbohydrate- Counting Diet, DI for Hypokalemia, DI for Diabetic Ketoacidosis - Follow up Plan Follow up with: Colin Orellana MD [Primary Care Provider] - Disposition: Home, Self-[facility] Medications: Home Medications Medication Instructions Recorded Confirmed Type RX: Insulin Glargine,Hum.rec.anlog 42 unit SQ DAILY 07/04/17 07/02/18 History [Basaglar Kwikpen U-100] RX: Insulin Lispro [HumaLOG 100 18 unit SQ TID 07/04/17 07/02/18 History units/mL 3mL vial (SSI)] RX: Amitriptyline HCl [Elavil 10mg 10 mg PO DAILY 07/02/18 07/02/18 History tablet] RX: Atorvastatin Calcium 10 mg PO HS 07/03/18 07/03/18 History [Atorvastatin 10mg Tab] RX: Amlodipine Besylate [Norvasc 10 mg PO DAILY #30 tablet 07/05/18 Rx 10mg tablet] Carvedilol [Carvedilol 25mg Tab] 25 mg PO BID #60 tab 07/06/18 Rx RX: Furosemide [Furosemide 40MG 40 mg PO BID #0 07/06/18 07/02/18 Rx tAB] RX: Sodium Bicarbonate [Sodium 650 mg PO TID #90 tablet 07/07/18 Rx Bicarbonate 650mg Tablet] RX: Sodium Polystyrene Sulfon/Sorb 15 gm PO DAILY #30 oral.susp 07/07/18 Rx [Kayexalate 15gm/60mL bottle] Prescriptions/Medication Reconciliation: New RX: Sodium Bicarbonate [Sodium Bicarbonate 650mg Tablet] 650 mg PO TID #90 tablet RX: Sodium Polystyrene Sulfon/Sorb [Kayexalate 15gm/60mL bottle] 15 gm PO DAILY #30 oral.susp RX: Amlodipine Besylate [Norvasc 10mg tablet] 10 mg PO DAILY #30 tablet Carvedilol [Carvedilol 25mg Tab] 25 mg PO BID #60 tab Continue RX: Insulin Lispro [HumaLOG 100 units/mL 3mL vial (SSI)] 18 unit SQ TID RX: Insulin Glargine,Hum.rec.anlog [Basaglar Kwikpen U-100] 42 unit SQ DAILY RX: Amitriptyline HCl [Elavil 10mg tablet] 10 mg PO DAILY RX: Atorvastatin Calcium [Atorvastatin 10mg Tab] 10 mg PO HS Changed RX: Furosemide [Furosemide 40MG tAB] 40 mg PO BID #0 Discontinued Nebivolol HCl [Bystolic] 10 mg PO DAILY RX: Potassium Chloride [Klor-con 20 mEq tablet] 20 meq PO BID
[2018-07-07 07:51] LABS: Anion Gap 10.9 mEq/L (5-15); Calcium 8.3 mg/dL (8.5-10.1); Potassium 3.9 mmoL/L (3.5-5.1)
== END 2018-07-07 11:50 | disposition home or self-care (01) | DRG 640 ==
LOC: ER 15:02 → ICU 17:19 → 2ND 07-05 16:47
PROVIDERS: ADMIT Family Medicine; ATTEND Family Medicine
CPT/HCPCS: J2310

== ENCOUNTER → 2018-07-08 12:47 | Outpatient (CLI) | payer MEDICAID, SELFPAY ==
[2018-07-08 13:59] LABS: Anion Gap 14.2 mEq/L (5-15); Blood Urea Nitrogen 54 mg/dL (7-18); Calcium 8.3 mg/dL (8.5-10.1); Carbon Dioxide 31 mmol/L (21.0-32.0); Chloride 100 mmol/L (98-107); Creatinine,Serum 2.03 mg/dL (0.70-1.30); Estimated Glomerular Filt Rate 36 ml/min (>60); GFR (African American) 44 ML/MIN (>60); Glucose 200 mg/dL (74-106); Potassium 4.2 mmoL/L (3.5-5.1); Sodium 141 mmol/L (136-145)
== END ==
PROVIDERS: Visit Provider Family Medicine
DX: E87.5 Hyperkalemia (principal)
CPT/HCPCS: 36415; 80048

== ENCOUNTER 2018-07-11 15:18 | Observation (INO) ==
[2018-07-11 16:19] LABS: Basophils % 0.1 % (0.1-2.0); Eosinophils % 0.3 % (0.1-12.0); Hemoglobin 10.6 g/dL (14.1-18.0); Lymphocytes # 0.9 K/mm3 (0.7-4.5); Lymphocytes % 7.4 % (10-50); Mean Corpuscular HGB Conc 32.2 g/dL (31.8-35.4); Mean Corpuscular Hemoglobin 29.2 pg (27.0-31.2); Mean Corpuscular Volume 90.9 fl (80-94); Monocytes # 0.5 K/mm3 (0.1-1.0); Neutrophils # 10.1 K/mm3 (1.8-7.8); Neutrophils % 88.2 % (37.0-80.0); Platelet Count 267 K/mm3 (142-424); Red Blood Count 3.63 M/mm3 (4.60-6.20); Red Cell Distribution Width 15.1 % (11.5-17.5); White Blood Count 11.5 K/mm3 (4.8-10.8)
[2018-07-11 16:25] LABS: Anion Gap 16.8 mEq/L (5-15); Calcium 8.3 mg/dL (8.5-10.1); Potassium 3.8 mmoL/L (3.5-5.1)
--- NOTE | 2018-07-11 16:51 | History & Physical Report ---
*Admission Date: 07/11/18 *Chief complaint: vomiting *History of present illness: 43 year old male admitted to [facility] one week ago for diastolic HF and CAESAR presented to the office with vomiting and inability to hold down solids and liquids with symptoms beginning 5 hours after discharge from [facility] last week. Denies fevers. Has had tremors but blood sugars have been "okay". Denies hypoglycemia. He has known gastroparesis from his diabetes. In office patient look pale with dry oropharynx and wretching in office. Decision was made to admit for IV antiemetics, IV prokinetics, and fluids if needed. [facility] History I have reviewed the patient's past medical history: Yes Medical History: Reports:: Congestive Heart Failure, Diabetes Mellitus Type 1, Hypertension Denies:: Cancer, Diabetes Mellitus Type 2, MRSA *Have you ever received a pneumonia vaccine?: No *Have you received a flu vaccine this season?: No Other Surgeries: Yes: Cardiac Catheterization Amputation: No Fractures: No - *Social History Educational Level: Attended High School Smoking Status: Never smoker Alcohol Intake: never *Occupational Status:: disabled Housing: house Household Members: spouse *Travel in the last 8 weeks: None - Psychiatric History Expresses thoughts of harming self/others: None Suicide Plan Description: No Plan Family Hx:: Non-contributory, Cancer, Coronary Artery Disease, Diabetes, Hyperlipidemia, Hypertension, Kidney Disease, Stroke Review of Systems - Review of Systems see [facility] Meds Home Medications Medication Instructions Recorded Confirmed Type Insulin Glargine,Hum.rec.anlog 42 unit SQ DAILY 07/04/17 07/11/18 History [Radha Boland U-100] Insulin Lispro [HumaLOG 100 18 unit SQ TID 07/04/17 07/11/18 History units/mL 3mL vial (SSI)] Amitriptyline HCl [Elavil 10mg 10 mg PO DAILY 07/02/18 07/11/18 History tablet] Atorvastatin Calcium [Atorvastatin 10 mg PO HS 07/03/18 07/11/18 History 10mg Tab] Amlodipine Besylate [Norvasc 10mg 10 mg PO DAILY 07/11/18 07/11/18 History tablet] Carvedilol [Carvedilol 25mg Tab] 25 mg PO BID 07/11/18 07/11/18 History Furosemide [Furosemide 40MG tAB] 40 mg PO DAILY 07/11/18 07/11/18 History Metoclopramide HCl [Reglan 10mg 10 mg PO QID 07/11/18 07/11/18 History Tab] Sodium Bicarbonate [Sodium 650 mg PO TID 07/11/18 07/11/18 History Bicarbonate 650mg Tablet] Allergies Allergy/AdvReac Type Severity Reaction Status Date / Time No Known Allergies Allergy Verified 06/21/18 20:38 Exam Vital signs and Labs for Last 24 Hours: Temp Pulse Resp BP Pulse Ox 98.1 F 77 20 183/93 H 91 L 07/11/18 15:30 07/11/18 15:30 07/11/18 15:30 07/11/18 15:30 07/11/18 15:30 Laboratory Results - last 24 hr 07/11/18 16:00: WBC 11.5 H, RBC 3.63 L, Hgb 10.6 L, Hct 33.0 L, MCV 90.9, MCH 29.2, MCHC 32.2, RDW 15.1, Plt Count 267, MPV 8.0, Neut % (Auto) 88.2 H, Lymph % (Auto) 7.4 L, Wilkes % (Auto) 4.0, Eos % (Auto) 0.3, Baso % (Auto) 0.1, Neut # (Auto) 10.1 H, Lymph # (Auto) 0.9, Wilkes # (Auto) 0.5, Eos # (Auto) 0.0, Baso # (Auto) 0.0 07/11/18 16:00: Sodium 140, Potassium 3.8, Chloride 98, Carbon Dioxide 29, Anion Gap 16.8 H, BUN 77 H, Creatinine 2.55 H, Estimated Creat Clear 61, Estimated GFR 28 L, Est GFR ( Amer) 34 L, Glucose 81, Calcium 8.3 L I & O for Last 24 hours: Intake & Output 07/09/18 07/10/18 07/11/18 07/12/18 11:59 11:59 11:59 11:59 Weight 249 lb 7 oz - Constitutional obese, chronically ill appearing, diaphoretic, disheveled - *Routine HEENT Exam Head: Present: normocephalic Eye: Present: PERRL ENT: Present: mucous membranes dry - *Routine Respiratory Exam Present: CTA bilaterally - *Routine Cardiovascular Exam Present: RRR, Normal S1, Normal S2 - *Routine Abdominal Exam Present: soft. Absent: tenderness - *Routine Extremities Exam Present: edema, full ROM Assessment and Plan (1) Diabetic gastroparesis Current visit: No Status: Acute Category: Medical Code(s): E11.43 - Type 2 diabetes mellitus with diabetic autonomic (poly)neuropathy; K31.84 - Gastroparesis (2) Acute kidney injury Current visit: No Status: Acute Category: Medical Code(s): N17.9 - Acute kidney failure, unspecified (3) Diabetes mellitus with neuropathy Current visit: No Status: Acute Category: Medical Code(s): E11.40 - Type 2 diabetes mellitus with diabetic neuropathy, unspecified (4) Diabetes mellitus with renal manifestations, uncontrolled Current visit: No Status: Acute Category: Medical Code(s): E11.29 - Type 2 diabetes mellitus with other diabetic kidney complication; E11.65 - Type 2 diabetes mellitus with hyperglycemia (5) Intractable vomiting Current visit: No Status: Acute Category: Medical Code(s): R11.10 - Vomiting, unspecified (6) Obstructive sleep apnea Current visit: No Status: Acute Category: Medical Code(s): G47.33 - Obstructive sleep apnea (adult) (pediatric) - Assessment and plan all Dx Assessment and Plan for all problems:: 1. Start IV fluids for mild CAESAR 2. IV erythromycin for gastroparesis 3. NPO
[2018-07-11 16:53] LABS: Lymphocytes % 7 % (10-50); Monocytes % 4 % (2-9); Neutrophils % 88 % (42-76); Nucleated Red Blood Cells 1; RBC Morphology Normal; Total Cells Counted 100
[2018-07-12 06:02] LABS: Calcium 7.9 mg/dL (8.5-10.1)
--- NOTE | 2018-07-12 06:57 | Progress Note ---
Internal Medicine - PN: Subj *Date: 07/12/18 *Time: 06:55 Interval history: Upon admission yesterday patient was ordered erythromycin. However this was unavailable and he was given azithromycin instead as a prokinetic agent. Patient has some mild nausea but has not vomited since admission. He has tolerated some orange juice which was required because of hypoglycemia that developed. Exam Vital signs and Labs for Last 24 Hours: Temp Pulse Resp BP Pulse Ox 98.4 F 74 18 177/82 H 94 L 07/12/18 04:00 07/12/18 04:00 07/12/18 04:00 07/12/18 04:00 07/12/18 04:00 Laboratory Results - last 24 hr 07/11/18 16:00: WBC 11.5 H, RBC 3.63 L, Hgb 10.6 L, Hct 33.0 L, MCV 90.9, MCH 29.2, MCHC 32.2, RDW 15.1, Plt Count 267, MPV 8.0, Neut % (Auto) 88.2 H, Lymph % (Auto) 7.4 L, Long % (Auto) 4.0, Eos % (Auto) 0.3, Baso % (Auto) 0.1, Neut # (Auto) 10.1 H, Lymph # (Auto) 0.9, Long # (Auto) 0.5, Eos # (Auto) 0.0, Baso # (Auto) 0.0, Total Counted 100, Neutrophils % (Manual) 88 H, Lymphocytes % (Manual) 7 L, Atypical Lymphs % 1.0, Monocytes % (Manual) 4, Nucleated RBCs 1, Platelet Estimate Normal, RBC Morphology Normal 07/11/18 16:00: Sodium 140, Potassium 3.8, Chloride 98, Carbon Dioxide 29, Anion Gap 16.8 H, BUN 77 H, Creatinine 2.55 H, Estimated Creat Clear 61, Estimated GFR 28 L, Est GFR ( Amer) 34 L, Glucose 81, Calcium 8.3 L 07/11/18 16:51: POC Glucose 86 07/11/18 21:34: POC Glucose 66 L 07/12/18 05:16: POC Glucose 58 L 07/12/18 05:36: Sodium 143, Potassium 3.0 L, Chloride 102, Carbon Dioxide 31, Anion Gap 13.0, BUN 73 H, Creatinine 2.37 H, Estimated Creat Clear 67, Estimated GFR 30 L, Est GFR ( Amer) 37 L, Glucose 52 L D, Calcium 7.9 L 07/12/18 06:13: POC Glucose 156 H I & O for Last 24 hours: Intake & Output 07/09/18 07/10/18 07/11/18 07/12/18 11:59 11:59 11:59 11:59 Intake Total 714 / 714 Balance 714 / 714 Weight 255 lb 6 oz Narrative: Patient is awake and alert. His color is slightly improved. Oropharynx is moist. Neck is without lymphadenopathy. Lungs are clear. Heart has a regular rate and rhythm. Abdomen is obese and soft Assessment and Plan (1) Intractable vomiting Current visit: No Status: Acute Category: Medical Code(s): R11.10 - Vomiting, unspecified (2) Diabetic gastroparesis Current visit: No Status: Acute Category: Medical Code(s): E11.43 - Type 2 diabetes mellitus with diabetic autonomic (poly)neuropathy; K31.84 - Gastroparesis (3) Acute kidney injury Current visit: No Status: Acute Category: Medical Code(s): N17.9 - Acute kidney failure, unspecified (4) Diabetes mellitus with neuropathy Current visit: No Status: Acute Category: Medical Code(s): E11.40 - Type 2 diabetes mellitus with diabetic neuropathy, unspecified (5) Diabetes mellitus with renal manifestations, uncontrolled Current visit: No Status: Acute Category: Medical Code(s): E11.29 - Type 2 diabetes mellitus with other diabetic kidney complication; E11.65 - Type 2 diabe paulette mellitus with hyperglycemia (6) Obstructive sleep apnea Current visit: No Status: Acute Category: Medical Code(s): G47.33 - Obstructive sleep apnea (adult) (pediatric) - Assessment and plan all Dx Assessment and Plan for all problems:: 1. Continue azithromycin as a prokinetic agent 2. Advance to clear liquids 3. Replace potassium intravenously 4. Repeat BMP in a.m.
--- NOTE | 2018-07-12 07:57 | Pharmacy Consult Notes ---
[facility] Pharmacy VTE Monitoring - Patient Demographics Admission date: 07/11/18 Report Date: 07/12/18 Time: 07:56 Allergies/Adverse Reactions: Patient Allergies No Known Allergies Allergy (Verified 06/21/18 20:38) Height: 1.78 m Weight: 115.836 kg - VTE Risk Labs: VTE Related Lab Results Hgb 10.6 g/dL (14.1-18.0) L 07/11/18 16:00 Hct 33.0 % (42.0-52.0) L 07/11/18 16:00 Plt Count 267 K/mm3 (142-424) 07/11/18 16:00 BUN 73 mg/dL (7-18) H 07/12/18 05:36 Creatinine 2.37 mg/dL (0.70-1.30) H 07/12/18 05:36 Estimated Creat Clear 67 mL/min (50-200) 07/12/18 05:36 Was VTE Risk Assessment Performed: Yes VTE Score: 2 VTE Risk Level: Low Risk Clinical Trial Participant: No - Prophylaxis VTE Prophylaxis Ordered?: Yes Types of VTE Prophylaxis: TEDS Knee High
[2018-07-13 06:32] LABS: Anion Gap 9.7 mEq/L (5-15); Calcium 8.1 mg/dL (8.5-10.1); Potassium 3.7 mmoL/L (3.5-5.1)
--- NOTE | 2018-07-13 07:23 | Discharge Summary ---
General - General Admission date:: 07/11/18 Discharge date: 07/13/18 HPI HPI: 43 year old male admitted to [facility] one week ago for diastolic HF and CAESAR presented to the office with vomiting and inability to hold down solids and liquids with symptoms beginning 5 hours after discharge from [facility] last week. Denies fevers. Has had tremors but blood sugars have been "okay". Denies hypoglycemia. He has known gastroparesis from his diabetes. In office patient look pale with dry oropharynx and wretching in office. Decision was made to admit for IV antiemetics, IV prokinetics, and fluids if needed. Hospital Course Hospital Course: Patient was admitted and placed on IV azithromycin as a prokinetic, intravenous Protonix, gentle IV fluid hydration. Admission labs revealed acute kidney injury. Patient was made n.p.o. The first evening of admission he had hypoglycemia but did not have any further vomiting. On July 12 patient's diet was advanced to clear liquids which he tolerated with out vomiting or nausea. He was continued on IV azithromycin and IV Protonix. Fluids were decreased. On the there had been no improvement in patient's labs regarding his acute kidney injury and he continued to have periods of hypoglycemia. On the patient had been without vomiting for the entire hospitalization and was discharged home. Objective Vital signs: Temp Pulse Resp BP Pulse Ox 98.9 F 72 18 173/85 H 87 L 07/13/18 04:00 07/13/18 04:00 07/13/18 04:00 07/13/18 04:00 07/13/18 04:00 no acute distress - *Routine Respiratory Exam Present: CTA bilaterally - *Routine Cardiovascular Exam Present: RRR, Normal S1, Normal S2, murmur - *Routine Abdominal Exam Present: soft, normoactive bowel sounds. Absent: tenderness Results Labs on day of discharge: Labs from last 24 hours 07/13/18 07/13/18 07/12/18 06:02 05:27 20:20 Sodium 141 Potassium 3.7 D Chloride 104 Carbon Dioxide 31 Anion Gap 9.7 BUN 52 H D Creatinine 1.66 H D Estimated Creat Clear 96 Estimated GFR 46 L Est GFR ( Amer) 56 L D Glucose 72 L POC Glucose 51 L 62 L Calcium 8.1 L 07/12/18 07/12/18 16:16 11:03 Sodium Potassium Chloride Carbon Dioxide Anion Gap BUN Creatinine Estimated Creat Clear Estimated GFR Est GFR ( Amer) Glucose POC Glucose 67 L 88 Calcium DS: Diagnosis - Discharge Diagnosis (1) Intractable vomiting Status: Acute (2) Diabetic gastroparesis Status: Acute (3) Acute kidney injury Status: Acute (4) Diabetes mellitus with neuropathy Status: Acute (5) Diabetes mellitus with renal manifestations, uncontrolled Status: Acute (6) Obstructive sleep apnea Status: Acute Discharge Plan - Patient Discharge Instructions ACTIVITY: Continue current activity DIET: continue same diet Patient Instructions: DI for Orthostatic Hypotension, DI for Diabetes Type 1 -- Adult, DI for Vomiting -- Adult - Follow up Plan Follow up with: Colin Orellana MD [Primary Care Provider] - 07/21/18 2:00 pm Disposition: Home, Self-Senior Care Medications: Home Medications Medication Instructions Recorded Confirmed Type Insulin Glargine,Hum.rec.anlog 42 units SQ DAILY 07/04/17 07/12/18 History [Basaglar Kwikpen U-100] Insulin Lispro [HumaLOG 100 18 units SQ TID 07/04/17 07/12/18 History units/mL 3mL vial (SSI)] Amitriptyline HCl [Elavil 10mg 10 mg PO HS 07/02/18 07/12/18 History tablet] Atorvastatin Calcium [Atorvastatin 20 mg PO HS 07/03/18 07/12/18 History 10mg Tab] Amlodipine Besylate [Norvasc 10mg 10 mg PO DAILY 07/11/18 07/11/18 History tablet] Carvedilol [Carvedilol 25mg Tab] 25 mg PO BID 07/11/18 07/11/18 History Furosemide [Furosemide 40MG tAB] 40 mg PO DAILY 07/11/18 07/11/18 History Metoclopramide HCl [Reglan 10mg 10 mg PO QID 07/11/18 07/11/18 History Tab] Sodium Bicarbonate [Sodium 650 mg PO TID 07/11/18 07/11/18 History Bicarbonate 650mg Tablet] Prescriptions/Medication Reconciliation: Continue Insulin Lispro [HumaLOG 100 units/mL 3mL vial (SSI)] 18 units SQ TID Insulin Glargine,Hum.rec.anlog [Basaglar Kwikpen U-100] 42 units SQ DAILY Furosemide [Furosemide 40MG tAB] 40 mg PO DAILY Carvedilol [Carvedilol 25mg Tab] 25 mg PO BID Amlodipine Besylate [Norvasc 10mg tablet] 10 mg PO DAILY Amitriptyline HCl [Elavil 10mg tablet] 10 mg PO HS Atorvastatin Calcium [Atorvastatin 10mg Tab] 20 mg PO HS Discontinued Metoclopramide HCl [Reglan 10mg Tab] 10 mg PO QID Sodium Bicarbonate [Sodium Bicarbonate 650mg Tablet] 650 mg PO TID
== END 2018-07-13 09:30 | disposition home or self-care (01) ==
LOC: 2ND
PROVIDERS: ADMIT Family Medicine; ATTEND Family Medicine
CPT/HCPCS: 36415; 80048; 82962; 85007; 85025; G0378

== ENCOUNTER 2018-07-16 09:39 | Observation (INO) ==
[2018-07-16 10:19] LABS: Basophils % 0.2 % (0.1-2.0); Creatine Kinase 523 U/L (39-308); Eosinophils # 0.1 K/mm3 (0.0-0.4); Eosinophils % 1.2 % (0.1-12.0); Hematocrit 36.6 % (42.0-52.0); Hemoglobin 11.2 g/dL (14.1-18.0); Lymphocytes # 0.8 K/mm3 (0.7-4.5); Lymphocytes % 8.9 % (10-50); Mean Corpuscular HGB Conc 30.6 g/dL (31.8-35.4); Mean Corpuscular Hemoglobin 28.7 pg (27.0-31.2); Mean Corpuscular Volume 93.9 fl (80-94); Mean Platelet Volume 7.6 fl (7.4-10.4); Monocytes # 0.3 K/mm3 (0.1-1.0); Monocytes % 3.2 % (1.7-9.3); Neutrophils # 7.6 K/mm3 (1.8-7.8); Neutrophils % 86.5 % (37.0-80.0); Platelet Count 277 K/mm3 (142-424); Red Blood Count 3.89 M/mm3 (4.60-6.20); Red Cell Distribution Width 14.7 % (11.5-17.5); White Blood Count 8.8 K/mm3 (4.8-10.8)
[2018-07-16 10:20] LABS: Alanine Aminotransferase 317 U/L (12-78); Albumin Level 3.3 gm/dL (3.4-5.0); Albumin/Globulin Ratio 0.9 (1.1-1.8); Alkaline Phosphatase 79 U/L (46-116); Anion Gap 12.2 mEq/L (5-15); Aspartate Amino Transferase 33 U/L (15-37); Bilirubin,Total 0.5 mg/dL (0.2-1.0); Blood Urea Nitrogen 53 mg/dL (7-18); Calcium 8.1 mg/dL (8.5-10.1); Carbon Dioxide 27 mmol/L (21.0-32.0); Chloride 100 mmol/L (98-107); Globulin 3.6 gm/dl (1.3-3.2); Glucose 296 mg/dL (74-106); Potassium 4.7 mmoL/L (3.5-5.1); Sodium 139 mmol/L (136-145); Total Protein,Serum 6.9 gm/dL (6.4-8.2)
[2018-07-16 10:21] LABS: Acetone, Serum (Rapid) None Detected (None Detect)
[2018-07-16 11:00] LABS: Microscopic, Urine URINE MICROSCOPIC (MICROSCOPIC)
[2018-07-16 11:01] LABS: Appearance,Urine SL CLOUDY (Clear); Bilirubin,Urine Negative (Negative); Blood, Urine Negative (Negative); Color,Urine YELLOW (Yellow); Glucose,Urine (UA) 1+ (Negative); Ketones,Urine Negative (Negative); Leukocyte Esterase,Urine Negative (Negative); PH,Urine 5.5 (5.0-8.5); Protein,Urine 1+ (Negative); Specific Gravity, Urine 1.025 (1.005-1.030); Urobilinogen,Urine 0.2 EU/dl (0.2)
[2018-07-16 11:04] LABS: Eosinophils % 1 % (0-3); Lymphocytes % 5 % (10-50); Monocytes % 1 % (2-9); Neutrophils % 93 % (42-76); RBC Morphology Normal; Total Cells Counted 100
--- NOTE | 2018-07-16 11:04 | Emergency Department Note ---
ED Disposition Clinical Impression: Generalized edema, Diabetic nephropathies, IDDM (insulin dependent diabetes mellitus) Disposition: Still a Patient Condition on Discharge: Fair Instructions: DI for Skin Abscess Referrals: Colin Orellana MD [Primary Care Provider] - - Critical Care Critical Care Time: No Attestation: On 07/16/18, the high probability of a clinically significant, sudden or life threatening deterioration of the following system(s) required my full and direct attention, intervention and personal management. The time I documented below is in addition to time spent performing reported procedures but includes the following listed in this critical care notation. Medical Decision Making - Medical Records Medical records reviewed: Yes: I reviewed the patient's medical records. - Gage Inquiry Pt receiving controlled substance: No Gage was queried for this patient: No Vital Signs: 07/16/18 09:50 Temperature 98.6 F Temperature Source Oral Pulse Rate [Left Radial] 85 Respiratory Rate 20 Blood Pressure [Right Arm] 199/94 H Blood Pressure Mean [Right Arm] 129 Blood Pressure Source [Right Arm] Automatic Cuff Blood Pressure Position [Right Arm] Sitting 02 Sat by Pulse Oximetry 85 L Oxygen Delivery Method Room Air - Lab Data Lab Results 07/16/18 09:47: POC Glucose 267 H 07/16/18 09:53: WBC 8.8, RBC 3.89 L, Hgb 11.2 L, Hct 36.6 L, MCV 93.9, MCH 28.7, MCHC 30.6 L, RDW 14.7, Plt Count 277, MPV 7.6, Neut % (Auto) 86.5 H, Lymph % (Auto) 8.9 L, [place] % (Auto) 3.2, Eos % (Auto) 1.2, Baso % (Auto) 0.2, Neut # (Auto) 7.6, Lymph # (Auto) 0.8, [place] # (Auto) 0.3, Eos # (Auto) 0.1, Baso # (Auto) 0.0 07/16/18 09:53: Sodium 139, Potassium 4.7, Chloride 100, Carbon Dioxide 27, Anion Gap 12.2, BUN 53 H, Creatinine 1.96 H, Estimated Creat Clear 86, Estimated GFR 38 L, Est GFR ( Amer) 46 L, Glucose 296 H, Calcium 8.1 L, Total Bilirubin 0.5, AST 33, ALT 317 H*, Alkaline Phosphatase 79, Total Creatine Kinase 523 H*, CK-MB (CK-2) 5.8 H, CK-MB (CK-2) Rel Index 1.1, Troponin I < 0.02, Total Protein 6.9, Albumin 3.3 L, Globulin 3.6 H, Albumin/Globulin Ratio 0.9 L, Acetone Level None detected 07/16/18 09:53: B-Natriuretic Peptide 513 H Result diagrams: 07/16/18 09:53 07/16/18 09:53 Orders (Tests/Meds): ORDERS Category Date Time Status Complete Blood Count Auto Diff Stat Lab 07/16/18 09:53 Results Urinalysis and Microscopic Stat Lab 07/16/18 10:48 Received - Radiology Data #1 Image(s): Chest Image Reviewed: Yes I reviewed the patient's radiology image Preliminary Findings: Abnormal IMPRESSION: CHF with interstitial edema with right basilar alveolar edema or pneumonia Medical Decision Narrative: I reviewed the patient's most recent weight on July 12 was 255 today he is to 69 pounds. Reviewed his 2D echo done on July 12, 2018. See below. CONCLUSION: 1. Mildly enlarged atrium, normal left ventricular size, moderate concentric left ventricular hypertrophy, hyperdynamic left ventricular systolic function, visually estimated ejection fraction over 65% with no regional wall motion abnormality, diastolic parameters are inconclusive. Doppler evidence of high cardiac output state. 2. Mild mitral and tricuspid regurgitation 3. Small pericardial effusion noted. [address] Hickman is radiation oncology manager for Dr. Orellana about the patient. Discussed his clinical scenario, medications, echo findings and most recent labs. Dr Hickman agreed to admit the patient , resume his home medications, and give lasix 80 mg once , repeat labs and report to him. General Adult HPI - General Chief complaint: Skin/Abscess/Foreign Body Stated complaint: retaining fluid Time Seen by Provider: 07/16/18 10:10 Mode of Arrival: Ambulatory Limitations: No Limitations Description of Symptoms (Recalled from ER Triage Doc. by RN): Pt is having increased swelling in his face, legs and abdomen this morning. "Lasix is not working". - History of Present Illness HPI narrative: 43 years old white male with long-standing history of diabetes mellitus insulin requiring for the past 20 years. He had problems with water retention. He was admitted last week and started on Lasix 40 mg/day. Today he was brought by his because of facial plethora, increased abdominal girth, and weight gain. The believe that the Lasix is not working. Patient denies having chest pain, shortness of air, palpitations, abdominal pain nausea vomiting or diarrhea. Eyes having hemoptysis hematemesis coffee-ground emesis melanotic stool or bleeding per rectum. Onset (ago): day(s) Location: face, back, lower extremity Radiation: non-radiation Relieving factors: none Exacerbating factors: none Associated symptoms: denies other symptoms Treatments prior to arrival: none - Related Data Home Medications Medication Instructions Recorded Confirmed Insulin Glargine,Hum.rec.anlog 42 units SQ DAILY 07/04/17 07/16/18 [Basaglar Kwikpen U-100] Insulin Lispro [HumaLOG 100 18 units SQ TID 07/04/17 07/16/18 units/mL 3mL vial (SSI)] Amitriptyline HCl [Elavil 10mg 10 mg PO HS 07/02/18 07/16/18 tablet] Atorvastatin Calcium [Atorvastatin 20 mg PO HS 07/03/18 07/16/18 10mg Tab] Amlodipine Besylate [Norvasc 10mg 10 mg PO DAILY 07/11/18 07/16/18 tablet] Carvedilol [Carvedilol 25mg Tab] 25 mg PO BID 07/11/18 07/16/18 Furosemide [Furosemide 40MG tAB] 40 mg PO DAILY 07/11/18 07/16/18 Allergies Allergy/AdvReac Type Severity Reaction Status Date / Time No Known Allergies Allergy Verified 06/21/18 20:38 [facility] History - Hepatitis A Screen Drug use history?: No High risk sexual behaviors?: No History of sexually transmitted infection?: No Currently employed?: No Childcare worker?: No Do you have indoor plumbing?: Yes Do you have electricity?: Yes Attestation statement:: This patient has been screened for Hepatitis A risk factors. I have reviewed the patient's past medical history: Yes Medical History: Reports:: Congestive Heart Failure, Diabetes Mellitus Type 2, Hypertension Denies:: Cancer, Diabetes Mellitus Type 1, MRSA Other Surgeries: Yes: Cardiac Catheterization Amputation: No Fractures: No - Social History Smoking Status: Never smoker Alcohol Intake: never Occupational Status: disabled Housing: house Household Members: spouse - Psychiatric History Expresses thoughts of harming self/others: None Suicide Plan Description: No Plan Family Hx:: Non-contributory, Cancer, Coronary Artery Disease, Diabetes, Hyperlipidemia, Hypertension, Kidney Disease, Stroke ROS Obtained: Yes All systems reviewed & no additional complaints Physical Exam - General General appearance: alert, in no apparent distress - Head Head exam: atraumatic, normocephalic, normal inspection - Eye Eye exam: Present: normal appearance, PERRL, EOMI, other. Absent: scleral icterus, nystagmus - ENT ENT exam: Present: normal exam, normal oropharynx, mucous membranes moist, TM's normal bilaterally, normal external ear exam - Neck Neck exam: Present: normal inspection, full ROM, trachea midline. Absent: meningismus, lymphadenopathy - Chest Chest inspection: Present: normal inspection, symmetric chest wall rise. Absent: tenderness - Respiratory Respiratory exam: Present: normal lung sounds bilaterally. Absent: respiratory distress - Cardiovascular Cardiovascular exam: Present: regular rate, normal rhythm. Absent: JVD - Abdominal Exam Abdominal exam: Present: soft, normal bowel sounds, other (No shifting dullness. ). Absent: distention, tenderness, guarding, rebound, rigidity, Lucero's sign, tenderness at McBurney's Point - exam: Present: normal inspection, normal testicular lie, circumcised. Absent: testicular tenderness, urethral discharge, scrotal swelling - Extremities Exam Extremities exam: Present: normal inspection, full ROM, normal capillary refill, pedal edema (3+ bilateral lower extremity edema. ). Absent: tenderness, calf tenderness - Back Exam Back exam: Present: normal inspection, other (1+ sacral edema). Absent: tenderness, CVA tenderness (R), CVA tenderness (L) - Neurological Exam Neurological exam: Present: alert, oriented X3, CN II-XII intact, motor sensory deficit, reflexes normal - Psychiatric Psychiatric exam: Present: normal affect, normal mood - Skin Skin exam: Present: warm, dry, intact, normal color - Lymphatic Lymphatic Findings: no adenopathy
[2018-07-16 11:13] LABS: Bacteria,Urine 2+ /lpf
[2018-07-16 18:34] LABS: Anion Gap 12.8 mEq/L (5-15); Calcium 8.2 mg/dL (8.5-10.1); Potassium 3.8 mmoL/L (3.5-5.1)
--- NOTE | 2018-07-17 07:02 | History & Physical Report ---
*Admission Date: 07/16/18 *Chief complaint: Swelling *History of present illness: 43-year-old male with insulin-dependent diabetes, diabetic nephropathy, diastolic dysfunction of the heart presented to the emergency department because he awoke with facial swelling. Patient had recently been discharged from the hospital for intractable nausea and vomiting and had been placed on a liquid diet at home. Patient tells me he had been doing well on his liquid diet and drinking quite a bit of fluids. He awoke and noticed facial swelling as well as increased upper extremity swelling on the morning of admission and presented to the ER. In the ER he underwent an evaluation that showed an elevation of his BNP and a chest x-ray suggestive of fluid overload. Patient did not have any symptoms of heart failure such as shortness of breath, orthopnea, paroxysmal nocturnal dyspnea. Patient does wear oxygen at night although is not always compliant with this. Decision was made to admit the patient as his made the claim that the Lasix he takes by mouth does not seem to be effective. Patient reiterates this morning that sometimes he will take Lasix at home and will go the entire day without urinating. However, patient has been hospitalized now 3 times this month and at each hospitalization Lasix has been used to aid with diuresis and patient has always had a moderate to excellent response to the medication even when creatinine is elevated. Patient was given 80 mg of Lasix in the ER per the on-call doctor and admitted. This morning the patient continues to deny shortness of breath, orthopnea, paroxysmal nocturnal dyspnea. He feels like swelling is somewhat improved. Review of his vitals, intake and outputs since admission show elevated blood pressures, and a negative fluid balance of 552 mL's. [facility] History I have reviewed the patient's past medical history: Yes Medical History: Reports:: Congestive Heart Failure (Diastolic), Diabetes Mellitus Type 1, Hypertension Denies:: Cancer, Diabetes Mellitus Type 2, MRSA *Have you ever received a pneumonia vaccine?: No *Have you received a flu vaccine this season?: No Comment:: Diabetic gastroparesis, diabetic neuropathy, diabetic nephropathy Other Surgeries: Yes: Cardiac Catheterization Amputation: No Fractures: No - *Social History Educational Level: Attended High School Smoking Status: Never smoker Alcohol Intake: never *Occupational Status:: disabled Housing: house Household Members: spouse *Travel in the last 8 weeks: None - Psychiatric History Expresses thoughts of harming self/others: None Suicide Plan Description: No Plan Family Hx:: Non-contributory, Cancer, Coronary Artery Disease, Diabetes, Hyperlipidemia, Hypertension, Kidney Disease, Stroke Review of Systems - Review of Systems Review of systems:: pertinent systems reviewed and negative unless documented below - *Cardiovascular Reports foot swelling, Denies chest pain - *Respiratory Denies chest congestion, Denies cough, Denies shortness of breath - *Gastrointestinal Reports bloating, Denies abdominal pain Meds Home Medications Medication Instructions Recorded Confirmed Type Insulin Glargine,Hum.rec.anlog 42 units SQ DAILY 07/04/17 07/16/18 History [Basaglar Kwikpen U-100] Insulin Lispro [HumaLOG 100 18 units SQ AC 07/04/17 07/16/18 History units/mL 3mL vial (SSI)] Amitriptyline HCl [Elavil 10mg 10 mg PO HS 07/02/18 07/16/18 History tablet] Atorvastatin Calcium [Atorvastatin 20 mg PO HS 07/03/18 07/16/18 History 10mg Tab] Amlodipine Besylate [Norvasc 10mg 10 mg PO DAILY 07/11/18 07/16/18 History tablet] Carvedilol [Carvedilol 25mg Tab] 25 mg PO BID 07/11/18 07/16/18 History Furosemide [Furosemide 40MG tAB] 40 mg PO DAILY 07/11/18 07/16/18 History Allergies Allergy/AdvReac Type Severity Reaction Status Date / Time No Known Allergies Allergy Verified 06/21/18 20:38 Exam Vital signs and Labs for Last 24 Hours: Temp Pulse Resp BP Pulse Ox 98.2 F 82 20 160/85 H 90 L 07/17/18 04:00 07/17/18 04:00 07/17/18 04:00 07/17/18 04:00 07/17/18 04:00 Laboratory Results - last 24 hr 07/16/18 09:47: POC Glucose 267 H 07/16/18 09:53: WBC 8.8, RBC 3.89 L, Hgb 11.2 L, Hct 36.6 L, MCV 93.9, MCH 28.7, MCHC 30.6 L, RDW 14.7, Plt Count 277, MPV 7.6, Neut % (Auto) 86.5 H, Lymph % (Auto) 8.9 L, [place] % (Auto) 3.2, Eos % (Auto) 1.2, Baso % (Auto) 0.2, Neut # (Auto) 7.6, Lymph # (Auto) 0.8, [place] # (Auto) 0.3, Eos # (Auto) 0.1, Baso # (Auto) 0.0, Total Counted 100, Neutrophils % (Manual) 93 H, Lymphocytes % (Manual) 5 L, Monocytes % (Manual) 1 L, Eosinophils % (Manual) 1, Platelet Estimate Normal, RBC Morphology Normal 07/16/18 09:53: Sodium 139, Potassium 4.7, Chloride 100, Carbon Dioxide 27, Anion Gap 12.2, BUN 53 H, Creatinine 1.96 H, Estimated Creat Clear 86, Estimated GFR 38 L, Est GFR ( Amer) 46 L, Glucose 296 H, Calcium 8.1 L, Total Bilirubin 0.5, AST 33, ALT 317 H*, Alkaline Phosphatase 79, Total Creatine Kinase 523 H*, CK-MB (CK-2) 5.8 H, CK-MB (CK-2) Rel Index 1.1, Troponin I < 0.02, Total Protein 6.9, Albumin 3.3 L, Globulin 3.6 H, Albumin/Globulin Ratio 0.9 L, Acetone Level None detected 07/16/18 09:53: B-Natriuretic Peptide 513 H 07/16/18 10:48: Urine Color Yellow, Urine Appearance Sl cloudy, Urine pH 5.5, Ur Specific [place] 1.025, Urine Protein 1+, Urine Glucose (UA) 1+, Urine Ketones Negative, Urine Blood Negative, Urine Nitrate Negative, Urine Bilirubin Negative, Urine Urobilinogen 0.2, Ur Leukocyte Esterase Negative, Urine WBC 3-5, Ur Squamous Epith Cells 3-5, Urine Bacteria 2+, Hyaline Casts 5-10 07/16/18 16:08: POC Glucose 246 H 07/16/18 18:05: Sodium 142, Potassium 3.8, Chloride 102, Carbon Dioxide 31, Anion Gap 12.8, BUN 50 H, Creatinine 1.76 H, Estimated Creat Clear 95, Estimated GFR 43 L, Est GFR ( Amer) 52 L, Glucose 67 L D, Calcium 8.2 L 07/16/18 20:31: POC Glucose 88 I & O for Last 24 hours: Intake & Output 03/21/19 03/22/19 03/23/19 03/24/19 11:59 11:59 11:59 11:59 Intake Total 1448 / 1448 Output Total 1999 Balance -552 / -552 Weight 269 lb 264 lb 1 oz Narrative: Patient is awake and alert and appears at baseline and in no distress. Facial examination this morning does not show any significant periorbital edema. Oropharynx is moist and clear. Neck is without lymphadenopathy or carotid bruits. Lungs are clear. Heart has a regular rate and rhythm. Abdomen is soft and obese. Extremities have 2+ edema the lower extremities Assessment and Plan (1) Chronic diastolic heart failure Current visit: Yes Status: Acute Category: Medical Code(s): I50.32 - Chronic diastolic (congestive) heart failure (2) Diabetic nephropathies Current visit: Yes Status: Acute Category: Medical Code(s): E11.21 - Type 2 diabetes mellitus with diabetic nephropathy (3) Generalized edema Current visit: Yes Status: Acute Category: Medical Code(s): R60.1 - Generalized edema (4) IDDM (insulin dependent diabetes mellitus) Current visit: Yes Status: Acute Category: Medical Code(s): E11.9 - Type 2 diabetes mellitus without complications; Z79.4 - senior living (current) use of insulin (5) Obstructive sleep apnea Current visit: No Status: Acute Category: Medical Code(s): G47.33 - Obstructive sleep apnea (adult) (pediatric) (6) Uncontrolled diabetes mellitus Current visit: No Status: Acute Category: Medical Code(s): E11.65 - Type 2 diabetes mellitus with hyperglycemia - Assessment and plan all Dx Assessment and Plan for all problems:: Patient responded to intravenous doses of Lasix. BMP has been repeated this deepa. I am going to give the patient an oral dose of bumetanide and we will assess his response during the day. If he response to the bumetanide he will be discharged home this afternoon. I did have a discussion with the patient about fluid intake both in the hospital and at home. I suspect some of the patient's fluid retention since his discharge from the hospital was likely due to his fluid intake exceeding his urine output while he was on a liquid diet. Patient seems to voice understanding that to lose this water weight he will need to urinate more than he intakes. He will also need to restrict his sodium intake.
[2018-07-17 07:09] LABS: Hematocrit 30.9 % (42.0-52.0); Lymphocytes # 0.9 K/mm3 (0.7-4.5); Lymphocytes % 15.7 % (10-50); Red Cell Distribution Width 14.8 % (11.5-17.5)
[2018-07-17 07:15] LABS: Basophils % 0.3 % (0.1-2.0); Eosinophils # 0.2 K/mm3 (0.0-0.4); Eosinophils % 2.9 % (0.1-12.0); Mean Corpuscular HGB Conc 32.9 g/dL (31.8-35.4); Mean Corpuscular Hemoglobin 29.9 pg (27.0-31.2); Mean Corpuscular Volume 90.9 fl (80-94); Mean Platelet Volume 8.5 fl (7.4-10.4); Monocytes # 0.3 K/mm3 (0.1-1.0); Monocytes % 4.5 % (1.7-9.3); Neutrophils # 4.2 K/mm3 (1.8-7.8); Neutrophils % 76.7 % (37.0-80.0); Platelet Count 198 K/mm3 (142-424); White Blood Count 5.5 K/mm3 (4.8-10.8)
[2018-07-17 07:19] LABS: Hemoglobin 10.2 g/dL (14.1-18.0)
[2018-07-17 07:34] LABS: Albumin Level 2.9 gm/dL (3.4-5.0); Anion Gap 12.1 mEq/L (5-15); Bilirubin,Total 0.7 mg/dL (0.2-1.0); Calcium 7.8 mg/dL (8.5-10.1); Potassium 4.1 mmoL/L (3.5-5.1); Total Protein,Serum 5.9 gm/dL (6.4-8.2)
--- NOTE | 2018-07-17 14:30 | Discharge Summary ---
General - General Admission date:: 07/16/18 Discharge date: 07/17/18 HPI HPI: 43-year-old male with insulin-dependent diabetes, diabetic nephropathy, diastolic dysfunction of the heart presented to the emergency department because he awoke with facial swelling. Patient had recently been discharged from the hospital for intractable nausea and vomiting and had been placed on a liquid diet at home. Patient tells me he had been doing well on his liquid diet and drinking quite a bit of fluids. He awoke and noticed facial swelling as well as increased upper extremity swelling on the morning of admission and presented to the ER. In the ER he underwent an evaluation that showed an elevation of his BNP and a chest x-ray suggestive of fluid overload. Patient did not have any symptoms of heart failure such as shortness of breath, orthopnea, paroxysmal nocturnal dyspnea. Patient does wear oxygen at night although is not always compliant with this. Decision was made to admit the patient as his made the claim that the Lasix he takes by mouth does not seem to be effective. Patient reiterates this morning that sometimes he will take Lasix at home and will go the entire day without urinating. However, patient has been hospitalized now 3 times this month and at each hospitalization Lasix has been used to aid with diuresis and patient has always had a moderate to excellent response to the medication even when creatinine is elevated. Patient was given 80 mg of Lasix in the ER per the on-call doctor and admitted. This morning the patient continues to deny shortness of breath, orthopnea, paroxysmal nocturnal dyspnea. He feels like swelling is somewhat improved. Review of his vitals, intake and outputs since admission show elevated blood pressures, and a negative fluid balance of 552 mL's. Hospital Course Hospital Course: Patient was given Furosemdie 80mg IV on the morning of admission and 40mg IV in karen evening. Despite the claim by the patient's that Lasix was ineffective karen patient had 2000ml of urine output. On the morning of 07/17 due to this claim the patient was given bumex 1mg. This resulted in 2500mls of urine output by the afternoon of 07/17. Patient continued to deny orthonea, dyspnea on exertion, PND, or cough. Patient was discharged to home and will no take bumetanide as a diuretic. The importance of fluid and sodium restriction was emphasized to the patient. He voiced understanding. Objective Vital signs: Temp Pulse Resp BP Pulse Ox 98.3 F 83 18 183/98 H 92 L 07/17/18 08:00 07/17/18 08:00 07/17/18 08:00 07/17/18 08:00 07/17/18 08:00 Results Labs on day of discharge: Labs from last 24 hours 07/17/18 07/17/18 07/17/18 11:04 06:59 06:55 WBC RBC Hgb Hct MCV MCH MCHC RDW Plt Count MPV Neut % (Auto) Lymph % (Auto) [place] % (Auto) Eos % (Auto) Baso % (Auto) Neut # (Auto) Lymph # (Auto) [place] # (Auto) Eos # (Auto) Baso # (Auto) Sodium 140 Potassium 4.1 Chloride 102 Carbon Dioxide 30 Anion Gap 12.1 BUN 46 H Creatinine 1.55 H Estimated Creat Clear 106 Estimated GFR 50 L Est GFR ( Amer) 60 Glucose 175 H D POC Glucose 217 H 173 H Calcium 7.8 L Magnesium 1.9 Total Bilirubin 0.7 AST 24 D ALT 223 H D Alkaline Phosphatase 65 Total Protein 5.9 L Albumin 2.9 L D Globulin 3.0 Albumin/Globulin Ratio 1.0 L Urine Color Urine Appearance Urine pH Ur Specific [place] Urine Protein Urine Glucose (UA) Urine Ketones Urine Blood Urine Nitrate Urine Bilirubin Urine Urobilinogen Ur Leukocyte Esterase Urine WBC Ur Squamous Epith Cells Urine Bacteria Hyaline Casts 07/17/18 07/16/18 07/16/18 06:55 20:31 18:05 WBC 5.5 D RBC 3.40 L Hgb 10.2 L Hct 30.9 L MCV 90.9 MCH 29.9 MCHC 32.9 RDW 14.8 Plt Count 198 D MPV 8.5 Neut % (Auto) 76.7 Lymph % (Auto) 15.7 [place] % (Auto) 4.5 Eos % (Auto) 2.9 Baso % (Auto) 0.3 Neut # (Auto) 4.2 Lymph # (Auto) 0.9 [place] # (Auto) 0.3 Eos # (Auto) 0.2 Baso # (Auto) 0.0 Sodium 142 Potassium 3.8 Chloride 102 Carbon Dioxide 31 Anion Gap 12.8 BUN 50 H Creatinine 1.76 H Estimated Creat Clear 95 Estimated GFR 43 L Est GFR ( Amer) 52 L Glucose 67 L D POC Glucose 88 Calcium 8.2 L Magnesium Total Bilirubin AST ALT Alkaline Phosphatase Total Protein Albumin Globulin Albumin/Globulin Ratio Urine Color Urine Appearance Urine pH Ur Specific [place] Urine Protein Urine Glucose (UA) Urine Ketones Urine Blood Urine Nitrate Urine Bilirubin Urine Urobilinogen Ur Leukocyte Esterase Urine WBC Ur Squamous Epith Cells Urine Bacteria Hyaline Casts 07/16/18 07/16/18 16:08 10:48 WBC RBC Hgb Hct MCV MCH MCHC RDW Plt Count MPV Neut % (Auto) Lymph % (Auto) [place] % (Auto) Eos % (Auto) Baso % (Auto) Neut # (Auto) Lymph # (Auto) [place] # (Auto) Eos # (Auto) Baso # (Auto) Sodium Potassium Chloride Carbon Dioxide Anion Gap BUN Creatinine Estimated Creat Clear Estimated GFR Est GFR ( Amer) Glucose POC Glucose 246 H Calcium Magnesium Total Bilirubin AST ALT Alkaline Phosphatase Total Protein Albumin Globulin Albumin/Globulin Ratio Urine Color Yellow Urine Appearance Sl cloudy Urine pH 5.5 Ur Specific [place] 1.025 Urine Protein 1+ Urine Glucose (UA) 1+ Urine Ketones Negative Urine Blood Negative Urine Nitrate Negative Urine Bilirubin Negative Urine Urobilinogen 0.2 Ur Leukocyte Esterase Negative Urine WBC 3-5 Ur Squamous Epith Cells 3-5 Urine Bacteria 2+ Hyaline Casts 5-10 Preliminary micro results at discharge 07/16/18 10:48 Urine Culture - Preliminary Urine,Clean Catch Gram Positive Cocci DS: Diagnosis - Discharge Diagnosis (1) Chronic diastolic heart failure Status: Acute (2) Diabetic nephropathies Status: Acute (3) Generalized edema Status: Acute (4) IDDM (insulin dependent diabetes mellitus) Status: Acute (5) Obstructive sleep apnea Status: Acute (6) Uncontrolled diabetes mellitus Status: Acute Discharge Plan - Patient Discharge Instructions ACTIVITY: Continue current activity DIET: diabetic diet, low salt diet, other (Drink no more than 1200 mL's per day) Patient Instructions: Edema (Alternative Therapy), DI for Diabetes Type 1 -- Adult, Diabetic Nephropathy - Follow up Plan Follow up with: Colin Orellana MD [Primary Care Provider] - 07/21/18 2:00 pm Disposition: Home, Self-Senior Living Medications: Home Medications Medication Instructions Recorded Confirmed Type Insulin Glargine,Hum.rec.anlog 42 units SQ DAILY 07/04/17 07/16/18 History [Basaglar Kwikpen U-100] Insulin Lispro [HumaLOG 100 18 units SQ AC 07/04/17 07/16/18 History units/mL 3mL vial (SSI)] Atorvastatin Calcium [Atorvastatin 20 mg PO HS 07/03/18 07/16/18 History 10mg Tab] Amlodipine Besylate [Norvasc 10mg 10 mg PO DAILY 07/11/18 07/16/18 History tablet] Carvedilol [Carvedilol 25mg Tab] 25 mg PO BID 07/11/18 07/16/18 History Bumetanide [Bumex 1mg tablet] 1 mg PO DAILY #30 tablet 07/17/18 Rx Prescriptions/Medication Reconciliation: New Bumetanide [Bumex 1mg tablet] 1 mg PO DAILY #30 tablet Continue Insulin Lispro [HumaLOG 100 units/mL 3mL vial (SSI)] 18 units SQ AC Insulin Glargine,Hum.rec.anlog [Basaglar Kwikpen U-100] 42 units SQ DAILY Carvedilol [Carvedilol 25mg Tab] 25 mg PO BID Amlodipine Besylate [Norvasc 10mg tablet] 10 mg PO DAILY Atorvastatin Calcium [Atorvastatin 10mg Tab] 20 mg PO HS Discontinued Furosemide [Furosemide 40MG tAB] 40 mg PO DAILY Amitriptyline HCl [Elavil 10mg tablet] 10 mg PO HS
== END 2018-07-17 15:33 | disposition home or self-care (01) | DRG 699 ==
LOC: 2ND 09:39 → ER 09:39 → 2ND 12:05
PROVIDERS: ADMIT Internal Medicine Adolescent Medicine; ATTEND Family Medicine
CPT/HCPCS: 36415; 71020; 71046; 80048; 80053; 81001; 82009; 82550; 82553; 82962; 83735; 83880; 84484; 85007; 85025; 87086; 87088; 87186; 96374; 99284; G0378

== ENCOUNTER → 2018-08-09 10:36 | Outpatient (POV) | payer MEDICAID, SELFPAY | PROVIDERS: Visit Provider Internal Medicine | DX: Z00.00 Encounter for general adult medical examination without abnormal findings (principal) ==